=== PATIENT | male | born 1990 | race Caucasian/White ===

== ENCOUNTER 2021-01-16 10:44 | Emergency (ER) | payer BC, SELFPAY ==
--- NOTE | 2021-01-16 10:50 | XR_ITS ---
PROCEDURE INFORMATION: Exam: XR Left Knee Exam date and time: 01/16/2021 10:50 AM Age: 30 years old Clinical indication: Left; Patient HX: [place] a pop in knee yesterday, pain laterally, swelling around knee; Additional info: [place] pop in knee TECHNIQUE: Imaging protocol: XR Left knee. Views: 3 views. COMPARISON: No relevant prior studies available. FINDINGS: Bones/joints: Normal. Soft tissues: Normal. IMPRESSION: No acute findings.
[2021-01-16 11:24] VITALS: BP 116/75; PULSE 84; RESP 19; TEMP 36.8; O2SAT 99; BMI 38.0
--- NOTE | 2021-01-16 11:37 | HMH.EDUTC ---
[facility] [place] Disposition Clinical Impression: Knee sprain Qualifiers: Encounter type: initial encounter Involved ligament of knee: other ligament Laterality: left Qualified Code(s): S83.8X2A - Sprain of other specified parts of left knee, initial encounter Disposition: Home, Self-Care Condition on Discharge: Good Instructions: DI for Knee Sprain, How To Perform RICE (Rest, Ice, Compress, Elevate), How to Use a Knee Immobilizer Additional Instructions: *weight bearing as tolerated *RICE, Rest the extremity, Ice 15-20 minutes 3-4 times daily, Compress- wear the sugar wrap as discussed as much as possible to help reduce swelling and pain, Elevate the extremity when at rest *Knee immobilizer is for support and help control swelling, use it except in the shower. Be sure that is not to tight but not to loose either *Elevate when resting *Ibuprofen every 6-8 hours as needed for pain an inflammation. If need something more can take Tylenol in between doses of Ibuprofen to help Immediately follow up with your family doctor for new or worsening of symptoms, or no noticeable improvement over the next 3-5 days Prescriptions: Ibuprofen [Ibuprofen 600mg Tablet] 600 mg PO Q6HP PRN #20 tab PRN Reason: Moderate Pain Transmission Status: Received by [facility] Referrals: Provider,MD Prince [Primary Care Provider] - Fletcher Talbot MD [Staff Physician] - (Call office for appointment if no improvement) Forms: Work/School Release Time of Disposition: 11:50 Medical Decision Making - Bert Inquiry Pt receiving controlled substance: No Bert was queried for this patient: No Vital Signs: 01/16/21 11:24 01/16/21 12:09 Temperature 98.2 F 98 F Temperature Source Oral Pulse Rate 77 Pulse Rate [Right] 84 Respiratory Rate 19 14 Blood Pressure 120/74 Blood Pressure [Right Arm] 116/75 Blood Pressure Mean [Right Arm] 88 02 Sat by Pulse Oximetry 99 - Radiology Data #1 Image(s): Knee Image Reviewed: Yes I have reviewed radiologist's interpretation Preliminary Findings: Normal/NAD [facility] [place] HPI - General Stated complaint: left knee pop Time Seen by Provider: 01/16/21 11:37 Mode of Arrival: Ambulatory Source of Information: Patient Limitations: No Limitations Description of Symptoms (Recalled from Triage Doc. by RN): pt c/o L knee pain. he states he was coming down from an attic and felt a pop. HEENT Symptoms (Recalled from RN notes): No Resp Symptoms (Recalled from RN notes): No Skin Symptoms (Recalled from RN notes): No MS Symptoms (Recalled from RN notes): Yes (L knee pain) Functional Status (Recalled from RN notes): na - History of Present Illness Provider Complaint: Patient state that he was coming down the ladder from the attic when he felt a tearing pain and heard a pop in his left knee States that ever since he has been having burning like pain and mild swelling in his left knee when he tries to put weight on it State that today it was still hurting so he came in to get it checked - Related Data Home Medications Medication Instructions Recorded Confirmed naproxen sodium 220 mg capsule 220 mg PO BID 02/08/18 Previous Rx's Medication Instructions Recorded Ibuprofen [Ibuprofen 600mg 600 mg PO Q6HP PRN #20 tab 01/16/21 Tablet] Allergies Allergy/AdvReac Type Severity Reaction Status Date / Time alcohol Allergy Verified 02/08/18 15:29 latex Allergy Verified 02/08/18 15:29 - Worker's Comp Is this a Worker's Comp case?: No [facility] History - Hepatitis A Screen Drug use history?: No High risk sexual behaviors?: No History of sexually transmitted infection?: No Currently employed?: No Childcare worker?: No Do you have indoor plumbing?: Yes Do you have electricity?: Yes Attestation statement:: This patient has been screened for Hepatitis A risk factors. I have reviewed the patient's past medical history: Yes Medical History: Reports:: Hyperlipidemia Denies:: Kristine
[2021-01-16 12:09] VITALS: BP 120/74; PULSE 77; RESP 14; TEMP 36.6
== END 2021-01-16 12:09 | disposition home or self-care (01) ==
PROVIDERS: Emergency Provider Nurse Practitioner
DX: S83.8X2A Sprain of other specified parts of left knee, initial encounter (principal); X50.1XXA Overexertion from prolonged static or awkward postures, initial encounter; Y92.019 Unspecified place in single-family (private) house as the place of occurrence of the external cause; E78.5 Hyperlipidemia, unspecified; Z91.040 Latex allergy status
CPT/HCPCS: 29505; 73562; 99202; G0463

== ENCOUNTER 2022-06-29 10:25 | Emergency (ER) | payer BC, SELFPAY ==
[2022-06-29] VITALS (9 sets, daily range): BP systolic 109–126; BP diastolic 65–88; PULSE 57–78; RESP 17–18; TEMP 36.7–36.8; O2SAT 95–97; BMI 38.7; BMI 38.6
--- NOTE | 2022-06-29 10:31 | EXP.UTC ---
Discharge Plan Disposition Patient Disposition: Still a Patient Chief Complaint: Abdominal Pain Prescriptions Prescriptions: No Action naproxen sodium [Aleve] 220 mg capsule 220 mg PO BID ibuprofen 600 MG tablet 600 mg PO Q6HP PRN (Reason: Moderate Pain) Qty: 20 0RF Referrals Follow up/Referrals: Provider,Referral, MD [Primary Care Provider] - See instructions Discharge ED Provider: Jennifer Toledo [facility] [place] HPI General Stated complaint: Lump RT side, pain w/ diahrrea Time Seen by Provider: 06/29/22 10:31 History of Present Illness Provider Complaint: He states that he has had abdominal pain, chills, and low grade fever for the past 2 days. He has had nausea and diarrhea, but no vomiting. He still has his appendix. He does not have his gall bladdeer. Related Data Home Medications Medication Instructions Recorded Confirmed naproxen sodium 220 mg capsule 220 mg PO BID 02/08/18 (Aleve) Previous Rx's Medication Instructions Recorded ibuprofen 600 mg tablet 600 mg PO Q6HP PRN Moderate Pain 01/16/21 #20 tabs Allergies Allergy/AdvReac Type Severity Reaction Status Date / Time alcohol Allergy Verified 02/08/18 15:29 latex Allergy Verified 02/08/18 15:29 [facility] Social History Smoking Status: Former smoker alcohol intake: never substance use type: denies use current occupational status: employed Travel in the last 8 weeks: None ROS Obtained: Yes All systems reviewed & no additional complaints except as documented Constitutional Constitutional: Denies chills, Denies fever(s) and Reports poor appetite ENT Ears, Nose, Mouth, and Throat: Denies dizziness and Denies sore throat Cardiovascular Cardiovascular: Denies dyspnea Respiratory Respiratory: Denies chest congestion, Denies cough and Denies dyspnea Gastrointestinal Gastrointestingal: Reports as per HPI Genitourinary Male Genitourinary: Denies hematuria, Denies urinary frequency, Denies urinary hesitancy, Denies urinary incontinence and Denies urinary urgency Musculoskeletal Musculoskeletal: Denies arthralgias Integumentary/Breasts Skin/Breast: Denies rash Neurologic Neurologic: Denies dizziness Physical Exam General General appearance: alert and in no apparent distress Head Head exam: atraumatic and normocephalic Eye Eye exam: Present normal appearance, PERRL and EOMI ENT ENT exam: Present normal exam, normal oropharynx, mucous membranes moist, TM's normal bilaterally and normal external ear exam Neck Neck exam: Present normal inspection, full ROM and trachea midline; Absent tenderness, meningismus or lymphadenopathy Chest Chest inspection: Present normal inspection and symmetric chest wall rise; Absent tenderness, rash or abscess Respiratory Respiratory exam: Present normal lung sounds bilaterally; Absent respiratory distress, wheezes or stridor Cardiovascular Cardiovascular exam: Present regular rate and normal rhythm; Absent irregular rhythm, systolic murmur, diastolic murmur or JVD Abdominal Exam Abdominal exam: Present soft, tenderness, guarding and hypoactive bowel sounds; Absent distention, rebound, rigidity, psoas sign, obturator sign, heel tap sign, Sharpe's sign, Rovsing's sign or tenderness at McBurney's Point Extremities Exam Extremities exam: Present normal inspection and full ROM; Absent tenderness Back Exam Back exam: Present normal inspection and full ROM; Absent tenderness, CVA tenderness (R) or CVA tenderness (L) Neurological Exam Neurological exam: Present alert, oriented X3 and CN II-XII intact Psychiatric Psychiatric exam: Present normal affect and normal mood Skin Skin exam: Present warm, dry, intact and normal color Lymphatic Lymphatic Findings: no adenopathy Medical Decision Making Medical Records Medical records reviewed: No I reviewed the patient's medical records. Bert Inquiry Pt receiving controlled substance: No Medical Decision Narrati
[2022-06-29 10:48] LABS: Apearance,Urine Clear (Clear); Bilirubin,Urine Negative (Negative); Blood, Urine Negative (Negative); Color,Urine Yellow (Yellow); Glucose,Urine (UA) Negative (Negative); Ketones,Urine Negative (Negative); PH,Urine 5.5 (5.0-8.5); Protein,Urine Negative (Negative); UTC Leukocyte Esterase,Urine Negative (Negative); UTC Nitrate,Urine Negative (Negative); Urobilinogen,Urine 0.2 EU/dl (0.2)
--- NOTE | 2022-06-29 11:07 | CT_ITS ---
FINAL REPORT TECHNIQUE: After the administration of intravenous contrast, axial images were obtained through the abdomen and pelvis by computed tomography. The study was performed with techniques to keep radiation dose as low as reasonably achievable, (ALARA). Individual dose reduction techniques using automated exposure control or adjustment of mA and/or kV according to the patient's size were employed. CLINICAL HISTORY: rlq and llq abd pain. n/v/d FINDINGS: Abdomen: There is a 3 mm nodule in the left lung base, most likely benign. There is mild bibasilar atelectasis or scar. There is mild fatty infiltration of the liver. The patient is status post cholecystectomy. The spleen is unremarkable. The adrenals are normal. The pancreas is unremarkable. The kidneys enhance appropriately. The aorta is normal in caliber. There is no free fluid or adenopathy. There is a small umbilical hernia containing fat. Pelvis: The appendix is normal. The urinary bladder is unremarkable. There is no free fluid or adenopathy. IMPRESSION: Mild fatty liver. Reviewed, Interpreted and Dictated by Elmer Doyle III, MD Transcribed by Jazmyne Calhoun Authenticated and . [facility]
--- NOTE | 2022-06-29 11:08 | HMH.EDGENADL ---
Discharge Plan Disposition Patient Disposition: Home, Self-Care Condition: Good Prescriptions Prescriptions: New omeprazole 20 mg capsule,delayed release(DR/EC) 20 mg PO DAILY 28 Days Qty: 28 0RF dicyclomine 10 mg capsule 10 mg PO TID PRN (Reason: cramps) Qty: 20 0RF No Action naproxen sodium [Aleve] 220 mg capsule 220 mg PO BID ibuprofen 600 MG tablet 600 mg PO Q6HP PRN (Reason: Moderate Pain) Qty: 20 0RF Referrals Follow up/Referrals: Provider,Referral, MD [Primary Care Provider] - See instructions Activity Restrictions/Add. Instructions Additional Instructions/Restrictions: You have been evaluated for upper abdominal pain, cramping. This is likely due to irritable bowel syndrome, possibly ulcer. Please start taking omeprazole daily. Take Bentyl as needed for cramps. Try a food elimination diet. For 2 weeks, no gluten. For the next 2 weeks, no lactose. Follow-up with your primary care doctor as well as your [employer] rep. Return to the emergency department at once for any new or worsening symptoms, pain, vomiting, diarrhea, other concerns Clinical Impressions Clinical Impression: Epigastric abdominal pain, Abdominal pain Stand Alone Forms Stand Alone Forms: Work/School Release Instructions Patient Instructions: DI for Acute Abdominal Pain, DI for Epigastric Pain Discharge ED Provider: Jennifer Toledo Adult HPI General Chief complaint: Abdominal Pain Stated complaint: Lump RT side, pain w/ diahrrea Time Seen by Provider: 06/29/22 10:31 Mode of Arrival: Ambulatory Source of Information: Patient Limitations: No Limitations Description of Symptoms (Recalled from ER Triage Doc. by RN): pt c/o diarrhea x1 week, nausea that started this morning and bilateral UQ abd discomfort off and on x1 week. pt denies urinary symptoms. pt reports having GI issues since his gallbladder was removed 14 years ago. History of Present Illness HPI narrative: 32-year-old male presenting to the emergency department with upper abdominal pain, nausea. Symptoms started 2 to 3 days ago. They are constant. He has pain in his upper abdomen that is described as cramping, sometimes burning. It is located on the right and the left. He has had little appetite. Diarrhea. No fevers, chills, dysuria. History of cholecystectomy when he was 15 years old. Suffers from frequent abdominal pain. Has had upper and lower endoscopy. History of duodenal ulcer, no longer on omeprazole or other medicines for acid reflux. He denies lower abdominal pain, fevers, chills. No other prior abdominal surgeries. Related Data Home Medications Medication Instructions Recorded Confirmed naproxen sodium 220 mg capsule 220 mg PO BID 02/08/18 ([facility]) Previous Rx's Medication Instructions Recorded ibuprofen 600 mg tablet 600 mg PO Q6HP PRN Moderate Pain 01/16/21 #20 tabs dicyclomine 10 mg capsule 10 mg PO TID PRN cramps #20 caps 06/29/22 omeprazole 20 mg capsule,delayed 20 mg PO DAILY 4 weeks #28 caps 06/29/22 release Allergies Allergy/AdvReac Type Severity Reaction Status Date / Time alcohol Allergy Verified 02/08/18 15:29 latex Allergy Verified 02/08/18 15:29 PFSH PFS Social History (Updated 06/29/22 @ 11:14 by Saul Mcgrath APRN) Smoking Status: Former smoker alcohol intake: never substance use type: denies use current occupational status: employed Travel in the last 8 weeks: None ROS Obtained: Yes All systems reviewed & no additional complaints except as documented Constitutional Constitutional: Reports body ache, Denies chills, Denies fever(s) and Denies headache(s) Eyes Eyes: Denies blurry vision ENT Ears, Nose, Mouth, and Throat: Denies dizziness, Denies headache(s) and Denies sore throat Cardiovascular Cardiovascular: Denies chest pain, Denies dyspnea and Denies palpitations Respiratory Respiratory: Denies cough and Denies dyspnea Gastrointestinal Gastrointestingal
--- NOTE | 2022-06-29 11:16 | PC.NURSE ---
IV established and blood sent to the lab. report called to luke quick in the ed. pt walked to room 9 in the ed.
--- NOTE | 2022-06-29 11:20 | PC.NURSE ---
pt medicated per NOV, call light within reach. Notified pt of CT scan ordered per ER
[2022-06-29 11:22] LABS: Basophils # 0.1 K/mm3 (0-0.2); Basophils % 0.9 % (0.1-2.0); Eosinophils # 0.1 K/mm3 (0.0-0.4); Eosinophils % 1.6 % (0.1-12.0); Hemoglobin 15.5 g/dL (14.1-18.0); Lymphocytes # 2.6 K/mm3 (0.7-4.5); Lymphocytes % 30.7 % (10-50); Mean Corpuscular HGB Conc 33.7 g/dL (31.8-35.4); Mean Corpuscular Hemoglobin 28.7 pg (27.0-31.2); Mean Corpuscular Volume 85.2 fl (80-94); Mean Platelet Volume 7.7 fl (7.4-10.4); Monocytes # 0.5 K/mm3 (0.1-1.0); Monocytes % 5.5 % (1.7-9.3); Neutrophils # 5.2 K/mm3 (1.8-7.8); Neutrophils % 61.3 % (37.0-80.0); Platelet Count 392 K/mm3 (142-424); White Blood Count 8.5 K/mm3 (4.8-10.8)
[2022-06-29 11:27] LABS: Alanine Aminotransferase 46 U/L (12-78); Albumin Level 4.4 g/dl (3.5-5.0); Albumin/Globulin Ratio 1.4 (1.1-1.8); Alkaline Phosphatase 86 U/L (38-126); Anion Gap 16.3 mEq/L (5-15); Aspartate Amino Transferase 40 U/L (17-59); Bilirubin,Total 1.5 mg/dl (0.2-1.3); Blood Urea Nitrogen 19 mg/dl (9-20); Carbon Dioxide 28 mmol/L (22.0-30.0); Chloride 100 mmol/L (98-107); Creatinine Clearance Estimated 217 mL/min (50-200); Estimated Glomerular Filt Rate 98 ml/min (>60); GFR (African American) 119 ML/MIN (>60); Globulin 3.1 g/dL (1.3-3.2); Glucose 94 mg/dl (74-100); Lipase 103 U/L (23-300); Potassium 4.3 mmoL/L (3.5-5.1); Sodium 140 mmol/L (136-145); Total Protein,Serum 7.5 g/dl (6.3-8.2)
[2022-06-29 12:21] LABS: Appearance,Urine CLEAR (Clear); Bilirubin,Urine Negative (Negative); Blood, Urine Negative (Negative); Color,Urine YELLOW (Yellow); Glucose,Urine (UA) Negative (Negative); Ketones,Urine Negative (Negative); Leukocyte Esterase,Urine Negative (Negative); Microscopic, Urine URINE MICROSCOPIC (MICROSCOPIC); Nitrate,Urine Negative (Negative); Protein,Urine Negative (Negative); Specific Gravity, Urine 1.025 (1.005-1.030); Urobilinogen,Urine 0.2 EU/dl (0.2)
[2022-06-29 12:32] LABS: C-Reactive Protein 5.5 mg/L (0-4)
--- NOTE | 2022-06-29 14:00 | PC.NURSE ---
pt eating crackers and drinking pop per ER MD request to PO challenge pt, pt tolerating well.
== END 2022-06-29 14:39 | disposition home or self-care (01) ==
LOC: UTC 10:29 → ER 11:02
PROVIDERS: Nurse Practitioner Family; Emergency Provider Emergency Medicine
DX: R10.9 Unspecified abdominal pain (principal); R10.13 Epigastric pain
CPT/HCPCS: 74177; 80053; 81001; 81003; 83690; 85025; 86140; 96365; 96375; 99284; J2405; Q9967

== ENCOUNTER 2022-08-05 15:21 | Emergency (ER) | payer BC, SELFPAY ==
--- NOTE | 2022-08-05 16:54 | EXP.UTC ---
Discharge Plan Disposition Patient Disposition: Home, Self-Care Condition: Good Prescriptions Prescriptions: New cyclobenzaprine 10 mg Tablet 10 mg PO BID PRN (Reason: Muscle Spasm) Qty: 20 0RF No Action naproxen sodium [Aleve] 220 mg capsule 220 mg PO BID omeprazole 20 mg capsule,delayed release(DR/EC) 20 mg PO DAILY 28 Days Qty: 28 0RF dicyclomine 10 mg capsule 10 mg PO TID PRN (Reason: cramps) Qty: 20 0RF ibuprofen 600 MG tablet 600 mg PO Q6HP PRN (Reason: Moderate Pain) Qty: 20 0RF Referrals Follow up/Referrals: Elmer Figueredo MD [Staff Physician] - See instructions Provider,MD Prince [Primary Care Provider] - See instructions Activity Restrictions/Add. Instructions Additional Instructions/Restrictions: Drink plenty of fluids. Take tylenol or ibuprofen for pain or fever. Take the medications as directed. Follow up with your regular doctor. GO TO THE ER FOR ANY WORSENING SYMPTOMS The muscle relaxer (cyclobenzaprine--Flexeril) will make you drowsy, so don't drive or operate heavy machinery after taking it. It may help your symptoms if this is a pulled muscle. It will make you drowsy though. So take it when you can rest at home for the next couple of days. Follow up with a surgeon if you continue to have these symptoms. I put in referral to Dr. Figueredo, but you should see the surgeon that did your gallbladder surgery if possible. Clinical Impressions Clinical Impression: Strain of abdominal muscle Stand Alone Forms Stand Alone Forms: Work/School Release Discharge ED Provider: Saul Mcgrath [facility] General Stated complaint: mid lower abdomin left side Time Seen by Provider: 08/05/22 16:54 History of Present Illness Provider Complaint: He was working with sheet metal 2 days ago when he felt something pull in his left side. Since then he has had a very tender area of his abdominal muscles of his left upper abdominal quadrant. He came in to see if he may have a hernia. He denies any fever, chills, constipation, or other symptoms. Related Data Home Medications Medication Instructions Recorded Confirmed naproxen sodium 220 mg capsule 220 mg PO BID 02/08/18 (Aleve) Previous Rx's Medication Instructions Recorded ibuprofen 600 mg tablet 600 mg PO Q6HP PRN Moderate Pain 05/15/21 #20 tabs dicyclomine 10 mg capsule 10 mg PO TID PRN cramps #20 caps 06/29/22 omeprazole 20 mg capsule,delayed 20 mg PO DAILY 4 weeks #28 caps 06/29/22 release cyclobenzaprine 10 mg tablet 10 mg PO BID PRN Muscle Spasm #20 08/05/22 tabs Allergies Allergy/AdvReac Type Severity Reaction Status Date / Time alcohol Allergy Verified 08/05/22 16:58 chloropyramine Allergy Verified 08/05/22 16:59 latex Allergy Verified 08/05/22 16:58 [facility] Disclaimer: The information contained in this section may have been updated after the patient was seen, as this information can be updated by other users. Social History Smoking Status: Former smoker alcohol intake: never substance use type: denies use current occupational status: employed Travel in the last 8 weeks: None ROS Obtained: Yes All systems reviewed & no additional complaints except as documented Constitutional Constitutional: Denies chills, Denies fever(s) and Reports poor appetite ENT Ears, Nose, Mouth, and Throat: Denies dizziness and Denies sore throat Cardiovascular Cardiovascular: Denies dyspnea Respiratory Respiratory: Denies chest congestion, Denies cough and Denies dyspnea Genitourinary Male Genitourinary: Denies hematuria, Denies urinary frequency, Denies urinary hesitancy, Denies urinary incontinence and Denies urinary urgency Musculoskeletal Musculoskeletal: Denies arthralgias Integumentary/Breasts Skin/Breast: Denies rash Neurologic Neurologic: Denies dizziness Physical Exam General General appearance: alert and in no a
[2022-08-05 16:55] VITALS: BP 127/79; PULSE 86; RESP 16; TEMP 36.7; O2SAT 99; BMI 39.3
[2022-08-05 17:39] VITALS: BP 127/79; PULSE 86; RESP 16; TEMP 36.7
== END 2022-08-05 17:45 | disposition home or self-care (01) ==
PROVIDERS: Emergency Provider Nurse Practitioner Family
DX: S39.011A Strain of muscle, fascia and tendon of abdomen, initial encounter (principal)
CPT/HCPCS: 99212; G0463

== ENCOUNTER 2023-03-06 11:27 | Emergency (ER) | payer BC, SELFPAY ==
[2023-03-06 11:35] VITALS: BP 130/87; PULSE 93; RESP 18; TEMP 36.8; O2SAT 98; BMI 40.6
--- NOTE | 2023-03-06 11:49 | EXP.UTC ---
Discharge Plan Disposition Patient Disposition: Home, Self-Care Condition: Good Prescriptions Prescriptions: New clindamycin HCl 300 mg capsule 300 mg PO Q8H 7 Days Qty: 21 0RF mupirocin 2 % ointment 1 applic topical TID Qty: 22 0RF Rx Instructions: apply open area on abdomen No Action naproxen sodium [Aleve] 220 mg capsule 220 mg PO BID omeprazole 20 mg capsule,delayed release(DR/EC) 20 mg PO DAILY 28 Days Qty: 28 0RF dicyclomine 10 mg capsule 10 mg PO TID PRN (Reason: cramps) Qty: 20 0RF cyclobenzaprine 10 mg Tablet 10 mg PO BID PRN (Reason: Muscle Spasm) Qty: 20 0RF ibuprofen 600 MG tablet 600 mg PO Q6HP PRN (Reason: Moderate Pain) Qty: 20 0RF Referrals Follow up/Referrals: Provider,Referral, MD [Primary Care Provider] - See instructions Activity Restrictions/Add. Instructions Additional Instructions/Restrictions: *Start antibiotic(s) immediately and be sure to take as ordered for the FULL length of time although you may be feeling better or start to see improvement in the next 24-48 hours *Monitor closely. Outlined redness so that you can monitor easier. Follow up immediately for new or worsening symptoms including but not limited to redness, swelling, streaking from site fever or chills. *Warm compress 15 minutes 3-4 times day *Never squeeze or pop these on your own. Seek immediate medical attention next time this occurs *Monitor Temp. Tylenol every 4 hours as needed and ibuprofen every 6 hours as needed (as long as your primary care doctor has told you that it is ok to take both. For fever, aches, pain. ER if no less that 101 despite Tylenol and ibuprofen ?Follow up with your family doctor/primary care physician in the next 48-72 hours if no improvement Apply topical medication directly to the scabbed area on your Abdomen Clinical Impressions Clinical Impression: Cellulitis Qualifiers: Site of cellulitis: unspecified site Qualified Code(s): L03.90 - Cellulitis, unspecified Instructions Patient Instructions: Cellulitis, Clindamycin, Mupirocin Discharge ED Provider: Millie Sepulveda [facility] [place] HPI General Stated complaint: Possible insect bite RT lower abd Time Seen by Provider: 03/06/23 11:49 History of Present Illness Provider Complaint: Patient states that he has a red area on his right lower abdomen States that he is not sure if something may have bitten him or not States that he was like a blister area an then it popped and then got red and warm around it Related Data Home Medications Medication Instructions Recorded Confirmed naproxen sodium 220 mg capsule 220 mg PO BID 02/08/18 (Aleve) Previous Rx's Medication Instructions Recorded ibuprofen 600 mg tablet 600 mg PO Q6HP PRN Moderate Pain 01/16/21 #20 tabs dicyclomine 10 mg capsule 10 mg PO TID PRN cramps #20 caps 06/29/22 omeprazole 20 mg capsule,delayed 20 mg PO DAILY 4 weeks #28 caps 06/29/22 release cyclobenzaprine 10 mg tablet 10 mg PO BID PRN Muscle Spasm #20 08/05/22 tabs clindamycin HCl 300 mg capsule 300 mg PO Q8H 7 days #21 caps 03/06/23 mupirocin 2 % topical ointment 1 applic topical TID #22 grams 03/06/23 Allergies Allergy/AdvReac Type Severity Reaction Status Date / Time alcohol Allergy Verified 08/05/22 16:58 chloropyramine Allergy Verified 08/05/22 16:59 latex Allergy Verified 08/05/22 16:58 PFS PFS Disclaimer: The information contained in this section may have been updated after the patient was seen, as this information can be updated by other users. Social History Smoking Status: Former smoker alcohol intake: never substance use type: denies use current occupational status: employed Travel in the last 8 weeks: None ROS Obtained: Yes All systems reviewed & no additional complaints except as documented and Yes Systems reviewed as appropriate & no additional complaints except as docum
[2023-03-06 12:07] VITALS: BP 130/87; PULSE 93; RESP 18; TEMP 36.8; O2SAT 98
== END 2023-03-06 12:09 | disposition home or self-care (01) ==
PROVIDERS: Emergency Provider Nurse Practitioner
DX: L03.311 Cellulitis of abdominal wall (principal); Z87.891 Personal history of nicotine dependence
CPT/HCPCS: 99212; 99214; G0463

== ENCOUNTER → 2023-05-31 23:33 | Outpatient (CLI) | payer BC, SELFPAY ==
[2023-05-31 18:25] LABS: Alanine Aminotransferase 48 U/L (12-78); Albumin Level 4.4 g/dl (3.5-5.0); Albumin/Globulin Ratio 1.4 (1.1-1.8); Alkaline Phosphatase 92 U/L (38-126); Amylase 56 U/L (30-110); Anion Gap 18.1 mEq/L (5-15); Aspartate Amino Transferase 39 U/L (17-59); Bilirubin,Total 1.1 mg/dl (0.2-1.3); Blood Urea Nitrogen 13 mg/dl (9-20); Calcium 9.3 mg/dl (8.4-10.2); Carbon Dioxide 24 mmol/L (22.0-30.0); Chloride 101 mmol/L (98-107); Estimated Glomerular Filt Rate 98 ml/min (>60); GFR (African American) 118 ML/MIN (>60); Globulin 3.2 g/dL (1.3-3.2); Glucose 126 mg/dl (74-100); Lipase 134 U/L (23-300); Potassium 4.1 mmoL/L (3.5-5.1); Sodium 139 mmol/L (136-145); Total Protein,Serum 7.6 g/dl (6.3-8.2)
[2023-05-31 18:29] LABS: Basophils # 0.1 K/mm3 (0-0.2); Basophils % 0.7 % (0.1-2.0); Eosinophils # 0.1 K/mm3 (0.0-0.4); Eosinophils % 1.7 % (0.1-12.0); Hematocrit 47.4 % (42.0-52.0); Hemoglobin 15.9 g/dL (14.1-18.0); Lymphocytes % 26.8 % (10-50); Mean Corpuscular HGB Conc 33.4 g/dL (31.8-35.4); Mean Corpuscular Hemoglobin 28.3 pg (27.0-31.2); Mean Corpuscular Volume 84.6 fl (80-94); Mean Platelet Volume 9.1 fl (7.4-10.4); Monocytes # 0.3 K/mm3 (0.1-1.0); Monocytes % 4.1 % (1.7-9.3); Neutrophils % 66.7 % (37.0-80.0); Platelet Count 401 K/mm3 (142-424); Red Cell Distribution Width 12.9 % (11.5-17.5); White Blood Count 7.5 K/mm3 (4.8-10.8)
[2023-05-31 18:47] LABS: Erythrocyte Sedimentation Rate 3 mm/hr (0-15)
[2023-06-02 13:07] LABS: C-Reactive Protein 5.3 mg/L (0-4)
== END ==
PROVIDERS: PCP Nurse Practitioner Family; Visit Provider Nurse Practitioner Family
DX: R10.13 Epigastric pain (principal); R10.9 Unspecified abdominal pain; R19.7 Diarrhea, unspecified
CPT/HCPCS: 80053; 82150; 83690; 85025; 85651; 86140

== ENCOUNTER → 2023-07-13 23:14 | Outpatient (CLI) | payer BC, SELFPAY | PROVIDERS: PCP Nurse Practitioner Family; Visit Provider Student in an Organized Health Care Education/Training Program | DX: J02.9 Acute pharyngitis, unspecified (principal) | CPT/HCPCS: 87070 ==

== ENCOUNTER 2023-12-14 16:05 | Emergency (ER) | payer BC, SELFPAY ==
--- NOTE | 2023-12-14 16:13 | EXP.UTC ---
Discharge Plan Disposition Patient Disposition: Home, Self-Care Condition: Good Prescriptions Prescriptions: New methylprednisolone 4 mg Tablets,Dose Pack 4 mg PO DIRECTED 6 Days Qty: 21 0RF Rx Instructions: Take 1 pack as directed for 6 days guaifenesin [Mucinex] 600 mg tablet extended release 12hr 600 - 1,200 mg PO BIDP PRN (Reason: Congestion) Qty: 30 0RF benzonatate 100 mg capsule 100 mg PO TIDP PRN (Reason: Cough) Qty: 30 0RF amoxicillin-pot clavulanate 875-125 mg Tablet 1 tab PO Q12H Qty: 20 0RF Referrals Follow up/Referrals: Sabi Samuels APRN [Primary Care Provider] - See instructions Activity Restrictions/Add. Instructions Additional Instructions/Restrictions: Drink plenty of fluids. Take tylenol or ibuprofen for pain or fever. Take the medications as directed. Follow up with your regular doctor. GO TO THE ER FOR ANY WORSENING SYMPTOMS Clinical Impressions Clinical Impression: Acute bronchitis, Pleurisy Stand Alone Forms Stand Alone Forms: Work/School Release Instructions Patient Instructions: DI for Acute Bronchitis Discharge ED Provider: Saul Mcgrath [facility] General Stated complaint: cough, fever Time Seen by Provider: 12/14/23 16:13 History of Present Illness Provider Complaint: He states that for the past 3 weeks he has had a cough and chest congestion. He denies fever. He states that he does have a history of getting pneumonia several times in the past. Related Data Previous Rx's Medication Instructions Recorded amoxicillin 875 mg-potassium 1 tab PO Q12H #20 tabs 12/14/23 clavulanate 125 mg tablet benzonatate 100 mg capsule 100 mg PO TIDP PRN Cough #30 caps 12/14/23 guaifenesin 600 mg tablet, 600 - 1,200 mg (1 - 2 x 600 mg) PO 12/14/23 extended release 12 hr (Mucinex) BIDP PRN Congestion #30 tabs methylprednisolone 4 mg tablets in 4 mg PO DIRECTED 6 days #21 tabs 12/14/23 a dose pack Allergies Allergy/AdvReac Type Severity Reaction Status Date / Time alcohol Allergy Verified 07/20/23 14:35 chloropyramine Allergy Verified 07/20/23 14:35 latex Allergy Verified 07/20/23 14:35 [facility] Disclaimer: The information contained in this section may have been updated after the patient was seen, as this information can be updated by other users. Medical History (Updated 12/14/23 @ 16:57 by Saul Mcgrath APRN) GERD (gastroesophageal reflux disease) Cellulitis Strain of abdominal muscle Knee sprain Leg pain Surgical History (Updated 07/20/23 @ 15:14 by Rachel Mckenna APRN) Hx of cholecystectomy Family History Other No significant family history Social History Smoking Status: Former smoker tobacco type: smokeless tobacco alcohol intake: never substance use type: denies use current occupational status: employed Travel in the last 8 weeks: None ROS Obtained: Yes All systems reviewed & no additional complaints except as documented Constitutional Constitutional: Reports poor appetite Eyes Eyes: Reports system reviewed and no additional complaints, except as documented ENT Ears, Nose, Mouth, and Throat: Reports as per HPI Cardiovascular Cardiovascular: Reports system reviewed and no additional complaints, except as documented and Denies chest pain Respiratory Respiratory: Denies shortness of breath, Reports chest congestion, Reports cough, Denies stridor and Denies wheezing Gastrointestinal Gastrointestingal: Reports system reviewed and no additional complaints, except as documented; Denies abdominal pain, diarrhea or vomiting Musculoskeletal Musculoskeletal: Reports system reviewed and no additional complaints, except as documented and Denies arthralgias Integumentary/Breasts Skin/Breast: Reports system reviewed and no additional complaints, except as documented and Denies rash Neurologic Neurologic: Denies paresthesias Allergic/Immunologic Allergic/Immunologic: Denies wheezing Physical Exam General General appearance: alert and in no apparent distress Eye Eye exam: Present normal appearance, PERRL and EOMI ENT ENT exam: Present mucous membranes moist and normal external ear exam Expanded ENT Exam External ear exam: Present normal external inspection TM/Canal exam: Bilateral TM: erythema and bulging Nose exam: Absent sinus tenderness Nasal speculum exam: Bilateral: normal Mouth exam: Present normal external inspection; Absent drooling Teeth exam: Present normal inspection Throat exam: Present tonsillar erythema and tonsillomegaly Neck Neck exam: Present normal inspection, full ROM and trachea midline; Absent tenderness, lymphadenopathy or thyromegaly Chest Chest inspection: Present normal inspection and symmetric chest wall rise; Absent tenderness or rash Respiratory Respiratory exam: Present normal lung sounds bilaterally; Absent respiratory distress, wheezes, stridor or accessory muscle use Cardiovascular Cardiovascular exam: Present regular rate, normal rhythm and normal heart sounds Abdominal Exam Abdominal exam: Present soft; Absent distention, tenderness, guarding, rebound or rigidity Extremities Exam Extremities exam: Present normal inspection, full ROM and normal capillary refill; Absent tenderness or calf tenderness Back Exam Back exam: Present normal inspection and full ROM; Absent tenderness Neurological Exam Neurological exam: Present alert and oriented X3 Psychiatric Psychiatric exam: Present normal affect and normal mood Skin Skin exam: Present warm, dry, intact and normal color Lymphatic Lymphatic Findings: no adenopathy Medical Decision Making Medical Records Medical records reviewed: No I reviewed the patient's medical records. Bert Inquiry Pt receiving controlled substance: No Lab Data Lab results reviewed: Yes I reviewed the patient's lab results. Radiology Data #1: Image(s): Chest Image Reviewed: Yes I reviewed the patient's radiology image and Yes I have reviewed radiologist's interpretation Preliminary Findings: No Infiltrates Seen Accession No. : [id number] Patient Name / ID : Saqib Salas Shankar / [id number] Exam Date : 12/14/2023 16:25:00 ( Final ) Study Comment : Sex / Age : M / 33Y Creator : DIANDRA HERNANDEZ Dictator : Recreation Therapist : Tying Machine Operator Lumber : DIANDRA HERNANDEZ Approver2 : Report Date : 12/14/2023 17:11:12 My Comment : PROCEDURE INFORMATION: Exam: XR Chest Exam date and time: 12/14/2023 4:25 PM Age: 33 years old Clinical indication: Cough; Additional info: Cough x 4 weeks, congestion. Former smoker for 2 yrs TECHNIQUE: Imaging protocol: Radiologic exam of the chest. Views: 2 views. COMPARISON: CT ABDOMEN PELVIS W CON 06/29/2022 12:09 PM FINDINGS: Lungs: Unremarkable. No consolidation. Pleural spaces: Unremarkable. No pleural effusion. No pneumothorax. Heart/Mediastinum: Unremarkable. No cardiomegaly. Bones/joints: Unremarkable. IMPRESSION: No acute findings.
[2023-12-14 16:15] VITALS: BP 132/85; PULSE 86; RESP 20; TEMP 36.9; O2SAT 97; BMI 38.5
--- NOTE | 2023-12-14 16:25 | XR_ITS ---
PROCEDURE INFORMATION: Exam: XR Chest Exam date and time: 12/14/2023 4:25 PM Age: 33 years old Clinical indication: Cough; Additional info: Cough x 4 weeks, congestion. Former smoker for 2 yrs TECHNIQUE: Imaging protocol: Radiologic exam of the chest. Views: 2 views. COMPARISON: CT ABDOMEN PELVIS W CON 06/29/2022 12:09 PM FINDINGS: Lungs: Unremarkable. No consolidation. Pleural spaces: Unremarkable. No pleural effusion. No pneumothorax. Heart/Mediastinum: Unremarkable. No cardiomegaly. Bones/joints: Unremarkable. IMPRESSION: No acute findings.
[2023-12-14 16:50] VITALS: BP 132/85; PULSE 86; RESP 20; TEMP 36.9; O2SAT 97
== END 2023-12-14 17:00 | disposition home or self-care (01) ==
PROVIDERS: Emergency Provider Nurse Practitioner Family; PCP Nurse Practitioner Family
DX: J20.9 Acute bronchitis, unspecified (principal); R09.1 Pleurisy; R05.9 Cough, unspecified; K21.9 Gastro-esophageal reflux disease without esophagitis; Z87.891 Personal history of nicotine dependence
CPT/HCPCS: 71046; 99212; 99214; G0463

== ENCOUNTER 2024-01-01 16:27 | Emergency (ER) | payer BC, SELFPAY ==
--- NOTE | 2024-01-01 16:54 | XR_ITS ---
PROCEDURE INFORMATION: Exam: XR Right Foot Exam date and time: 01/01/2024 4:57 PM Age: 33 years old Clinical indication: Injury or trauma; Other: Rolled ankle TECHNIQUE: Imaging protocol: Radiologic exam of the right foot. Views: 3 or more views. COMPARISON: CR XR ANKLE RT MIN 3V 01/01/2024 4:56 PM FINDINGS: Bones/joints: There is no evidence of acute fracture or dislocation. Joint spaces appear preserved. Calcaneal spurs are demonstrated at the origin of the plantar fascia and the insertion of the Achilles tendon. Soft tissues: No significant soft tissue edema. No subcutaneous emphysema or radiopaque foreign bodies. IMPRESSION: No acute posttraumatic osseous injury.
--- NOTE | 2024-01-01 16:54 | XR_ITS ---
PROCEDURE INFORMATION: Exam: XR Right Ankle Exam date and time: 01/01/2024 4:56 PM Age: 33 years old Clinical indication: Injury or trauma; Other: Rolled ankle TECHNIQUE: Imaging protocol: Radiologic exam of the right ankle. Views: 3 or more views. COMPARISON: No relevant prior studies available. FINDINGS: Bones/joints: There is no evidence of acute fracture or dislocation. Joint spaces appear preserved. Calcaneal spurs are demonstrated at the origin of the plantar fascia and the insertion of the Achilles tendon. A subtle geographic tubular lucency in the distal tibia suggests sequela of prior orthopedic hardware. Soft tissues: No significant soft tissue edema. No subcutaneous emphysema or radiopaque foreign bodies. IMPRESSION: No acute posttraumatic osseous injury.
[2024-01-01 17:10] VITALS: BP 128/83; PULSE 108; RESP 18; TEMP 36.6; O2SAT 99; BMI 38.7
--- NOTE | 2024-01-01 17:19 | ED_ITS ---
Discharge Plan Disposition Patient Disposition: Home, Self-Care Condition: Good Prescriptions Prescriptions: New ibuprofen [IBU] 800 mg tablet 800 mg PO Q8HP PRN (Reason: Moderate Pain) Qty: 30 0RF Referrals Follow up/Referrals: Sugey Sterling DPM [Staff Physician] - See instructions Sabi Samuels APRN [Primary Care Provider] - See instructions Activity Restrictions/Add. Instructions Additional Instructions/Restrictions: Rest the extremity, apply ice for 15 minutes as tolerated three or four times per day, Wear the phil wrap for compression, Elevate the extremity as tolerated while you are resting. Take ibuprofen for pain. I sent in a prescription to your pharmacy. Follow up with Dr. Sterling (podiatry) if you continue to have symptoms. I put in a referral but you need to call her office and schedule an appointment. Follow up with your regular doctor. GO TO THE ER FOR ANY WORSENING SYMPTOMS Clinical Impressions Clinical Impression: Sprain of right foot, Right ankle sprain Stand Alone Forms Stand Alone Forms: Work/School Release Instructions Patient Instructions: DI for Ankle Sprain, DI for Foot Sprain Discharge ED Provider: Saul Mcgrath [facility] General Stated complaint: AO 01/01/24 1100 Injury right foot Time Seen by Provider: 01/01/24 17:19 History of Present Illness Provider Complaint: He states that 1 day ago he stepped on an uneven area of pavement and it caused him to twist his right foot and ankle. He has had right foot and ankle pain and swelling since then. His pain is worse when he walks on the foot. He denies any other injury or complaints. Related Data Previous Rx's Medication Instructions Recorded ibuprofen 800 mg tablet (IBU) 800 mg PO Q8HP PRN Moderate Pain 01/01/24 #30 tabs Allergies Allergy/AdvReac Type Severity Reaction Status Date / Time alcohol Allergy Verified 01/01/24 17:23 chloropyramine Allergy Verified 01/01/24 17:23 latex Allergy Verified 01/01/24 17:23 [facility] Disclaimer: The information contained in this section may have been updated after the patient was seen, as this information can be updated by other users. Medical History (Updated 01/01/24 @ 18:20 by Saul Mcgrath APRN) GERD (gastroesophageal reflux disease) Cellulitis Strain of abdominal muscle Knee sprain Leg pain Surgical History Hx of cholecystectomy Family History Other No significant family history Social History Smoking Status: Former smoker tobacco type: smokeless tobacco alcohol intake: never substance use type: denies use current occupational status: employed Travel in the last 8 weeks: None ROS Obtained: Yes All systems reviewed & no additional complaints except as documented Constitutional Constitutional: Denies chills and Denies fever(s) Eyes Eyes: Denies eye discharge ENT Ears, Nose, Mouth, and Throat: Denies dizziness, Denies otalgia and Denies sore throat Cardiovascular Cardiovascular: Denies chest pain Respiratory Respiratory: Denies shortness of breath, Denies chest congestion, Denies cough, Denies stridor and Denies wheezing Gastrointestinal Gastrointestingal: Denies nausea or vomiting Musculoskeletal Musculoskeletal: Reports as per HPI Integumentary/Breasts Skin/Breast: Denies redness, Denies rash and Denies wounds Neurologic Neurologic: Denies dizziness, Denies paresthesias and Denies radicular pain Allergic/Immunologic Allergic/Immunologic: Denies wheezing Physical Exam General General appearance: alert and in no apparent distress Head Head exam: atraumatic, normocephalic and normal inspection Eye Eye exam: Present normal appearance, PERRL and EOMI ENT ENT exam: Present normal exam, normal oropharynx, mucous membranes moist, TM's normal bilaterally and normal external ear exam Neck Neck exam: Present normal inspection, full ROM and trachea midline; Absent meningismus or lymphadenopathy Chest Chest inspection: Present normal inspection and symmetric chest wall rise; Absent tenderness Respiratory Respiratory exam: Present normal lung sounds bilaterally; Absent respiratory distress Cardiovascular Cardiovascular exam: Present regular rate and normal rhythm; Absent JVD Abdominal Exam Abdominal exam: Present soft and normal bowel sounds; Absent distention, tenderness or guarding Extremities Exam Extremities exam: Present normal capillary refill; Absent calf tenderness Expanded Lower Extremity Exam Right: Knee exam: Present normal inspection, full ROM and knee extension intact; Absent tenderness Lower leg exam: Present normal inspection, full ROM and Achilles tendon intact; Absent tenderness or Homans' sign Ankle exam: Present full ROM, tenderness and swelling; Absent abrasion, laceration, ecchymosis, deformity, crepitus, dislocation, erythema, tenderness over talofibular lig or anterior draw sign Foot/toe exam: Present full ROM, tenderness and swelling; Absent abrasion, laceration, ecchymosis, deformity, crepitus, dislocation, erythema, amputation, puncture wound, foreign body, calcaneal tenderness, tenderness at base of 5th metatarsal, nail avulsion or subungual hematoma Neurovascular/Tendon exam: Present normal capillary refill and normal 2- point discrimination; Absent pulse deficit, motor deficit, sensory deficit, tendon deficit, extremity cold to touch or pallor Gait: observed and limited by pain Back Exam Back exam: Present normal inspection; Absent tenderness Neurological Exam Neurological exam: Present alert and oriented X3 Psychiatric Psychiatric exam: Present normal affect and normal mood Skin Skin exam: Present warm, dry, intact and normal color Lymphatic Lymphatic Findings: no adenopathy Medical Decision Making Medical Records Medical records reviewed: No I reviewed the patient's medical records. Bert Inquiry Pt receiving controlled substance: No Orders (Tests/Meds): ORDERS Category Date Time Status Ankle XR -Right minimum 3 Views [XR ankle RT min 3V] Exams 01/01/24 16:54 Taken Stat XR foot RT min 3V Stat Exams 01/01/24 16:54 Taken Radiology Data #1: Image(s): Ankle Image Reviewed: Yes I reviewed the patient's radiology image and Yes I have reviewed radiologist's interpretation Preliminary Findings: No Fracture Seen Accession No. : [id number] Patient Name / ID : KARINA LOOMIS / [id number] Exam Date : 01/01/2024 16:56:37 ( Final ) Study Comment : Sex / Age : M / 33Y Creator : EBONY SWARTZ MD Dictator : Public Relations Supervisor : Crm Coordinator : EBONY SWARTZ MD Approver2 : Report Date : 01/01/2024 17:26:11 My Comment : PROCEDURE INFORMATION: Exam: XR Right Ankle Exam date and time: 01/01/2024 4:56 PM Age: 33 years old Clinical indication: Injury or trauma; Other: Rolled ankle TECHNIQUE: Imaging protocol: Radiologic exam of the right ankle. Views: 3 or more views. COMPARISON: No relevant prior studies available. FINDINGS: Bones/joints: There is no evidence of acute fracture or dislocation. Joint spaces appear preserved. Calcaneal spurs are demonstrated at the origin of the plantar fascia and the insertion of the Achilles tendon. A subtle geographic tubular lucency in the distal tibia suggests sequela of prior orthopedic hardware. Soft tissues: No significant soft tissue edema. No subcutaneous emphysema or radiopaque foreign bodies. IMPRESSION: No acute posttraumatic osseous injury. #2: Image(s): Foot/Toes Image Reviewed: Yes I reviewed the patient's radiology image and Yes I have reviewed radiologist's interpretation Preliminary Findings: No Fracture Seen Accession No. : [id number] Patient Name / ID : KARINA LOOMIS / [id number] Exam Date : 01/01/2024 16:57:51 ( Final ) Study Comment : Sex / Age : M / 33Y Creator : EBONY SWARTZ MD Dictator : Public Relations Supervisor : Crm Coordinator : EBONY SWARTZ MD Approver2 : Report Date : 01/01/2024 17:35:50 My Comment : PROCEDURE INFORMATION: Exam: XR Right Foot Exam date and time: 01/01/2024 4:57 PM Age: 33 years old Clinical indication: Injury or trauma; Other: Rolled ankle TECHNIQUE: Imaging protocol: Radiologic exam of the right foot. Views: 3 or more views. COMPARISON: CR XR ANKLE RT MIN 3V 01/01/2024 4:56 PM FINDINGS: Bones/joints: There is no evidence of acute fracture or dislocation. Joint spaces appear preserved. Calcaneal spurs are demonstrated at the origin of the plantar fascia and the insertion of the Achilles tendon. Soft tissues: No significant soft tissue edema. No subcutaneous emphysema or radiopaque foreign bodies. IMPRESSION: No acute posttraumatic osseous injury. Procedures Risk/Benefits of Procedure(s) Were Explained: Yes Orthopedic Splinting/Casting Injury #1: Side: right Lower Extremity Injury Location: ankle and foot Lower Extremity Immobilizer: Phil wrap Post Cast/Splinting Neuro Status: intact and no change Post Cast/Splinting Vasc Status: intact and no change
[2024-01-01 18:31] VITALS: BP 128/83; PULSE 108; RESP 18; TEMP 36.6; O2SAT 99
== END 2024-01-01 18:30 | disposition home or self-care (01) ==
PROVIDERS: Emergency Provider Nurse Practitioner Family; PCP Nurse Practitioner Family
DX: S93.401A Sprain of unspecified ligament of right ankle, initial encounter (principal); S93.601A Unspecified sprain of right foot, initial encounter; X50.1XXA Overexertion from prolonged static or awkward postures, initial encounter
CPT/HCPCS: 73610; 73630; 99212; 99214; G0463

== ENCOUNTER 2024-01-16 14:38 | Outpatient (CLI) | payer BC, SELFPAY ==
--- NOTE | 2024-01-16 14:47 | MR_ITS ---
FINAL REPORT CLINICAL HISTORY: Chronic Ankle Instability rolled ankle lateral and plantar pain FINDINGS: Multiplanar MR imaging of the right ankle was performed without contrast. No fractures identified. There is bone bruising/marrow edema in the distal inferior talus with a small presumed osteochondral lesion in this region. Postoperative changes are seen in the region of the anterior talofibular ligament, lateral malleolus and lateral aspect of the talus. The graft is not well-visualized, and a tear of the graft is not excluded. There is thickening of the calcaneofibular ligament which may represent sequela of prior partial tear. The posterior talofibular ligament is intact. The other ligaments appear intact. Mild posterior tibial and peroneus longus tenosynovitis is noted. There is mild distal Achilles peritendinitis. The other tendons have an unremarkable appearance. The posterior plantar aponeurosis is intact. A small tibiotalar joint effusion is seen. The musculature is intact. There is no evidence of soft tissue mass or cyst. IMPRESSION: Postoperative changes from anterior talofibular ligament repair. The graft is not well-visualized and a tear of the graft is not excluded. Mild posterior tibial and peroneus longus tenosynovitis. Mild bone bruising/marrow edema in the distal inferior talus with a small osteochondral lesion. Authenticated and ERN
== END 2024-01-16 23:59 | disposition home or self-care (01) ==
LOC: RAD 14:40
PROVIDERS: PCP Student in an Organized Health Care Education/Training Program; Visit Provider Podiatrist
DX: M25.571 Pain in right ankle and joints of right foot (principal); M25.371 Other instability, right ankle; S86.311A Strain of muscle(s) and tendon(s) of peroneal muscle group at lower leg level, right leg, initial encounter; S93.491S Sprain of other ligament of right ankle, sequela; S93.601A Unspecified sprain of right foot, initial encounter
CPT/HCPCS: 73721

== ENCOUNTER 2024-06-04 09:43 | Emergency (ER) | payer BC, SELFPAY ==
[2024-06-04 09:45] VITALS: BP 127/76; PULSE 72; RESP 19; TEMP 36.6; O2SAT 97; BMI 36.8
--- NOTE | 2024-06-04 09:51 | XR_ITS ---
FINAL REPORT CLINICAL HISTORY: pain FINDINGS: LUMBAR SPINE Three views demonstrate no acute fracture. The disc spaces are well preserved. There is mild anterior osteophyte formation There is no malalignment. IMPRESSION: No acute process. Reviewed, Interpreted and Dictated by Oren Venegas MD Transcribed by Jazmyne Calhoun Authenticated and [facility]
--- NOTE | 2024-06-04 10:23 | ED_ITS ---
Discharge Plan Disposition Patient Disposition: Home, Self-Care Condition: Good Prescriptions Prescriptions: New cyclobenzaprine 10 mg Tablet 10 mg PO BID PRN (Reason: Muscle Spasm) Qty: 20 0RF methylprednisolone 4 mg Tablets,Dose Pack 4 mg PO DIRECTED 6 Days Qty: 21 0RF Rx Instructions: Take 1 pack as directed for 6 days Referrals Follow up/Referrals: Nallely Gaspar PA [Primary Care Provider] - See instructions Activity Restrictions/Add. Instructions Additional Instructions/Restrictions: Go home and rest. It would be best if you rested tomorrow too. No heavy lifting & No twisting for the next few days. Take the oral medications as directed. The muscle relaxer (cyclobenzaprine--Flexeril) will make you drowsy, so don't drive or operate heavy machinery after taking it. Don't start the oral steroids (medrol dose pack) until tomorrow, since you had the shots in here today. Follow up with your regular doctor. GO TO THE ER FOR ANY WORSENING SYMPTOMS OR CONCERN, ESPECIALLY BOWEL OR BLADDER ISSUES, SADDLE AREA NUMBNESS, FEVER, ETC Clinical Impressions Clinical Impression: Low back pain, Sciatica Stand Alone Forms Stand Alone Forms: Work/School Release Instructions Patient Instructions: DI for Low Back Pain, DI for Sciatica, Methylprednisolone Injection Print Language Print Language: Nepalese Discharge ED Provider: Saul Mcgrath [facility] General Stated complaint: severe lower back pain Mode of Arrival: Ambulatory Source of Information: Patient Limitations: No Limitations Time Seen by Provider: 06/04/24 10:23 Description of Symptoms (Recalled from Triage Doc. by RN): PATIENT C/O LOWER BACK PAIN THAT STARTED THIS MORNING. PATIENT STATES HE WAS HELPING HIS SIT UP THIS MORNING WHEN HE HEARD A POP FOLLOWED BY A SHARP/BURNING PAIN IN HIS LOWER BACK. PATIENT REPORTS A HISTORY OF A BULDGING DISC HEENT Symptoms (Recalled from RN notes): No Resp Symptoms (Recalled from RN notes): No Skin Symptoms (Recalled from RN notes): No MS Symptoms (Recalled from RN notes): Yes Functional Status (Recalled from RN notes): WNL History of Present Illness Provider Complaint: He states that for the past 2 days he has had low back pain that radiates down his left leg. He states that his pain began after he was straining to lift something. He has been taking naproxen at home for this pain with not much relief noted. He denies any bowel or bladder issues. Related Data Previous Rx's ?Medication ?Instructions ?Recorded cyclobenzaprine 10 mg tablet 10 mg PO BID PRN Muscle Spasm #20 06/04/24 tabs methylprednisolone 4 mg tablets in 4 mg PO DIRECTED 6 days #21 tabs 06/04/24 a dose pack Allergies Allergy/AdvReac Type Severity Reaction Status Date / Time alcohol Allergy Verified 01/22/24 14:57 chloropyramine Allergy Verified 01/22/24 14:57 latex Allergy Verified 01/22/24 14:57 Worker's Comp Is this a Worker's Comp case?: No [facility] Disclaimer: The information contained in this section may have been updated after the patient was seen, as this information can be updated by other users. Medical History GERD (gastroesophageal reflux disease) Cellulitis Strain of abdominal muscle Knee sprain Leg pain Surgical History History of ankle surgery Right ankle 2004- bolt placed for stability, 2005- hardware removal, 2018- anchors and mesh placed Hx of cholecystectomy Family History Other No significant family history Social History Smoking Status: Former smoker tobacco type: smokeless tobacco alcohol intake: never substance use type: denies use current occupational status: employed Travel in the last 8 weeks: None ROS Obtained: Yes All systems reviewed & no additional complaints except as documented Constitutional Constitutional: Denies chills, Denies fever(s) and Denies weakness Eyes Eyes: Denies eye discharge ENT Ears, Nose, Mouth, and Throat: Denies dizziness, Denies otalgia and Denies sore throat Cardiovascular Cardiovascular: Denies chest pain Respiratory Respiratory: Denies shortness of breath, Denies chest congestion, Denies cough, Denies stridor and Denies wheezing Gastrointestinal Gastrointestingal: Denies nausea or vomiting Musculoskeletal Musculoskeletal: Reports as per HPI and Reports back pain Integumentary/Breasts Skin/Breast: Denies rash Neurologic Neurologic: Reports as per HPI, Denies dizziness, Denies paresthesias, Reports radicular pain and Denies weakness Allergic/Immunologic Allergic/Immunologic: Denies wheezing Physical Exam General General appearance: alert and in no apparent distress Head Head exam: atraumatic, normocephalic and normal inspection Eye Eye exam: Present normal appearance, PERRL and EOMI ENT ENT exam: Present normal exam, normal oropharynx, mucous membranes moist, TM's normal bilaterally and normal external ear exam Neck Neck exam: Present normal inspection, full ROM and trachea midline; Absent meningismus or lymphadenopathy Chest Chest inspection: Present normal inspection and symmetric chest wall rise; Absent tenderness Respiratory Respiratory exam: Present normal lung sounds bilaterally; Absent respiratory distress Cardiovascular Cardiovascular exam: Present regular rate and normal rhythm; Absent JVD Abdominal Exam Abdominal exam: Present soft and normal bowel sounds; Absent distention, tenderness or guarding Extremities Exam Extremities exam: Present normal inspection, full ROM and normal capillary refill; Absent calf tenderness Back Exam Back exam: Present normal inspection; Absent tenderness Neurological Exam Neurological exam: Present alert, oriented X3, CN II-XII intact, normal gait and reflexes normal; Absent motor sensory deficit Expanded Neurological Exam Speech: Present fluid speech Cranial nerves: Normal: EOM function (II, III, IV, ), facial sensation (V), facial palsy (VII), gag reflex (IX), spinal accessory function (XI) and tongue deviation (XII) Cerebellar function: normal gait Motor strength - LUE: 5/5 Motor strength - RUE: 5/5 Motor strength - LLE: 5/5 Motor strength - RLE: 5/5 Upper motor neuron exam: Normal: gigi neglect, pronator drift, Babinski sign and sensory extinction Sensory exam upper extremity: Normal: light touch and 2 point discrimination Sensory exam lower extremity: Normal: light touch and 2 point discrimination DTR: 2+: biceps (L), biceps (R), patellar (L), patellar (R), Achilles tendon (L) and Achilles tendon (R) Spinal cord function: Absent saddle anesthesia Psychiatric Psychiatric exam: Present normal affect and normal mood Skin Skin exam: Present warm, dry, intact and normal color Lymphatic Lymphatic Findings: no adenopathy Medical Decision Making Medical Records Medical records reviewed: No I reviewed the patient's medical records. Screening: Per USPSTF and CDC recommendations, given the prevalence of disease in our region, it is our hospital?s policy to screen for HIV and viral Hepatitis for all patients aged 18 and over and those with ongoing risk factors. Bert Inquiry Pt receiving controlled substance: No Vital Signs: 06/04/24 09:45 Temperature 97.9 F Temperature Source Oral Pulse Rate [Right Brachial] 72 Respiratory Rate 19 Blood Pressure [Right Arm] 127/76 Blood Pressure Mean [Right Arm] 93 Blood Pressure Source [Right Arm] Automatic Cuff Blood Pressure Position [Right Arm] Sitting 02 Sat by Pulse Oximetry 97 Oxygen Delivery Method Room Air Orders (Tests/Meds): ORDERS Category Date Time Status Lumbar spine XR 2-3 views [XR lumbar spine 2-3V] Stat Exams 06/04/24 09:51 Taken
--- NOTE | 2024-06-04 10:44 | PC.NURSE ---
SPOKE WITH PATI FROM PHARMACY R/T PATIENT'S ALCOHOL ALLERGY AND TORADOL. TORADOL DOES CONTAIN ALCOHOL, DO NOT GIVE
[2024-06-04] MEDS: METHYLPREDNISOLONE SOD SUCC 125MG VIAL 125 MG IM (10:50)
[2024-06-04 11:18] VITALS: BP 127/76; PULSE 72; RESP 19; TEMP 36.6; O2SAT 97
== END 2024-06-04 11:21 | disposition home or self-care (01) ==
PROVIDERS: Emergency Provider Nurse Practitioner Family; PCP Student in an Organized Health Care Education/Training Program
DX: M54.50 Low back pain, unspecified (principal)
CPT/HCPCS: 72100; 96372; 99213; G0381; J2919

== ENCOUNTER 2024-08-05 18:41 | Emergency (ER) | payer BC, SELFPAY ==
[2024-08-05 18:50] VITALS: BP 139/92; PULSE 97; RESP 22; TEMP 37.1; O2SAT 96; BMI 38.6
[2024-08-05 19:10] LABS: UTC Influenza A Antigen Negative (Negative); UTC Influenza B Antigen Negative (Negative); UTC Strep Screen (Rapid) Negative (Negative)
--- NOTE | 2024-08-05 19:14 | ED_ITS ---
Discharge Plan Disposition Patient Disposition: Home, Self-Care Condition: Good Prescriptions Prescriptions: New prednisone 20 mg tablet 20 mg PO BID 5 Days Qty: 10 0RF amoxicillin-pot clavulanate 875-125 mg Tablet 1 tab PO Q12H Qty: 20 0RF guaifenesin [Mucinex] 1,200 mg tablet extended release 12hr 1,200 mg PO Q12H PRN (Reason: congestion) Qty: 20 0RF Referrals Follow up/Referrals: Nallely Gaspar PA [Primary Care Provider] - See instructions Activity Restrictions/Add. Instructions Additional Instructions/Restrictions: * Start antibiotic today. Be sure to complete entire prescription even if feeling better * Monitor temp. Tylenol every 4 hours as needed and / or ibuprofen every 6 hours as needed ( As long as your primary care physician has told you that it ok to take both. For fever/aches/pains ER if no less than 101 despite Tylenol or Motrin * Humidifier/vaporizer or hot steamy shower * Mucinex for your cough Be sure to drink lots of water. *Start steroid today. Helps with inflammation therefore, cough and wheezing. Follow directions on the package. Reviewed side effects. Patient reports taking them before. Follow up IMMEDIATELY for new or worsening of symptoms OR no noticeable improvement over the next 48-72 hours. 911 immediately for any life threatening symptoms such as chest pain or difficulty breathing Clinical Impressions Clinical Impression: Sinusitis, Bronchitis Stand Alone Forms Stand Alone Forms: Work/School Release Instructions Patient Instructions: DI for Sinusitis, Acute Bronchitis Print Language Print Language: Portuguese Discharge ED Provider: Millie Sepulveda [facility] HPI General Stated complaint: sore throat, chills, rené Mode of Arrival: Ambulatory Source of Information: Patient Limitations: No Limitations Time Seen by Provider: 08/05/24 19:14 Description of Symptoms (Recalled from Triage Doc. by RN): PATIENT C/O SORE THROAT, BILATERAL EAR PAIN, INTERMITTEN FEVER, CHEST CONGESTION, SINUS PRESSURE AND HEADACHE X 2 DAYS HEENT Symptoms (Recalled from RN notes): Yes Resp Symptoms (Recalled from RN notes): No Skin Symptoms (Recalled from RN notes): No MS Symptoms (Recalled from RN notes): No Functional Status (Recalled from RN notes): WNL History of Present Illness Provider Complaint: Patient states that he has been having sinus pain and pressure, sore throat, cough, pain and pressure in his ears and feels like it is trying to move into his chest worse over the last couple of days States that his face feels sore around his cheeks from the sinus pressure States today he wasnt feeling any better so he came in to get checked Related Data Previous Rx's ?Medication ?Instructions ?Recorded amoxicillin 875 mg-potassium 1 tab PO Q12H #20 tabs 08/05/24 clavulanate 125 mg tablet guaifenesin 1,200 mg tablet, 1,200 mg PO Q12H PRN congestion 08/05/24 extended release 12 hr (Mucinex) #20 tabs prednisone 20 mg tablet 20 mg PO BID 5 days #10 tabs 08/05/24 Allergies Allergy/AdvReac Type Severity Reaction Status Date / Time alcohol Allergy Verified 06/07/24 08:45 chloropyramine Allergy Verified 06/07/24 08:45 latex Allergy Verified 06/07/24 08:45 Worker's Comp Is this a Worker's Comp case?: No [facility] Disclaimer: The information contained in this section may have been updated after the patient was seen, as this information can be updated by other users. Medical History GERD (gastroesophageal reflux disease) Cellulitis Strain of abdominal muscle Knee sprain Leg pain Surgical History History of ankle surgery Right ankle 2004- bolt placed for stability, 2005- hardware removal, 2018- anchors and mesh placed Hx of cholecystectomy Family History Other No significant family history Social History Smoking Status: Former smoker tobacco type: smokeless tobacco alcohol intake: never substance use type: denies use current occupational status: employed Travel in the last 8 weeks: None ROS Obtained: Yes All systems reviewed & no additional complaints except as documented and Yes Systems reviewed as appropriate & no additional complaints except as documented Constitutional Constitutional: Reports system reviewed and no additional complaints, except as documented, Reports as per HPI, Reports body ache and Reports headache(s) ENT Ears, Nose, Mouth, and Throat: Reports system reviewed and no additional complaints, except as documented, Reports as per HPI, Reports otalgia, Reports headache(s), Reports sinus pain, Reports sinus pressure and Reports sore throat Cardiovascular Cardiovascular: Reports system reviewed and no additional complaints, except as documented and Reports as per HPI Respiratory Respiratory: Reports system reviewed and no additional complaints, except as documented, Reports as per HPI, Denies shortness of breath, Reports chest congestion, Reports cough and Denies wheezing Gastrointestinal Gastrointestingal: Reports system reviewed and no additional complaints, except as documented and as per HPI Neurologic Neurologic: Reports headache(s) Allergic/Immunologic Allergic/Immunologic: Denies wheezing Physical Exam General General appearance: alert and in no apparent distress ENT ENT exam: Present mucous membranes moist Expanded ENT Exam TM/Canal exam: Bilateral TM: erythema and bulging Nose exam: Present sinus tenderness Throat exam: Present tonsillar erythema; Absent tonsillomegaly or tonsillar exudate Respiratory Respiratory exam: Present normal lung sounds bilaterally; Absent respiratory distress or wheezes Cardiovascular Cardiovascular exam: Present regular rate, normal rhythm and normal heart sounds Abdominal Exam Abdominal exam: Present soft, distention and normal bowel sounds Neurological Exam Neurological exam: Present alert, oriented X3 and normal gait Medical Decision Making Medical Records Screening: Per USPSTF and CDC recommendations, given the prevalence of disease in our region, it is our hospital?s policy to screen for HIV and viral Hepatitis for all patients aged 18 and over and those with ongoing risk factors. Bert Inquiry Pt receiving controlled substance: No Bert was queried for this patient: No Vital Signs: 08/05/24 18:50 Temperature 98.8 F Temperature Source Oral Pulse Rate [Left Brachial] 97 H Respiratory Rate 22 Blood Pressure [Left Arm] 139/92 H Blood Pressure Mean [Left Arm] 107 Blood Pressure Source [Left Arm] Automatic Cuff Blood Pressure Position [Left Arm] Sitting 02 Sat by Pulse Oximetry 96 Oxygen Delivery Method Room Air Lab Data Lab results reviewed: Yes I reviewed the patient's lab results. Lab Results 08/05/24 18:49: Influenza Type A Ag Negative, Influenza Type B Ag Negative, Strep Scn Rapid Clinic Negative Orders (Tests/Meds): ORDERS Category Date Time Status Strep Screen Confirmation Stat Micro 08/05/24 18:49 Received
[2024-08-05 19:25] VITALS: BP 139/92; PULSE 97; RESP 22; TEMP 37.1; O2SAT 96
== END 2024-08-05 19:28 | disposition home or self-care (01) ==
PROVIDERS: Emergency Provider Nurse Practitioner; PCP Student in an Organized Health Care Education/Training Program
DX: J32.9 Chronic sinusitis, unspecified (principal); J40 Bronchitis, not specified as acute or chronic; R50.9 Fever, unspecified; H92.03 Otalgia, bilateral; R09.81 Nasal congestion; R51.9 Headache, unspecified; J02.9 Acute pharyngitis, unspecified
CPT/HCPCS: 87804; 87880; 99212; G0381

== ENCOUNTER 2024-11-08 10:23 | Emergency (ER) | payer BC, SELFPAY ==
[2024-11-08 10:24] VITALS: BP 138/85; PULSE 100; RESP 18; TEMP 36.8; O2SAT 100; BMI 38.6
--- NOTE | 2024-11-08 10:38 | XR_ITS ---
FINAL REPORT CLINICAL HISTORY: rolled ankle,foot COMPARISON: None FINDINGS: Three views of the right ankle show a faint linear density along the lateral talus on the ankle mortise view. This may represent a tiny chip or avulsion fracture. The medial and lateral malleoli are intact. There is no subluxation.. IMPRESSION: Questionable tiny chip/avulsion fracture arising from the lateral talus. Reviewed, Interpreted and Dictated by Trav Garcia MD Transcribed by Rosemarie Al Authenticated and . [facility]
--- NOTE | 2024-11-08 10:39 | XR_ITS ---
FINAL REPORT CLINICAL HISTORY: rolled ankle and foot COMPARISON: None FINDINGS: Three views of the right foot show no evidence of acute displaced fracture or dislocation of the visualized bony architecture. There is mild calcaneal spurring. The joint spaces appear normal. IMPRESSION: Unremarkable exam. Reviewed, Interpreted and Dictated by Trav Garcia MD Transcribed by Rosemarie Al Authenticated and [facility]
--- NOTE | 2024-11-08 10:40 | XR_ITS ---
FINAL REPORT CLINICAL HISTORY: INJURY rolled ankle COMPARISON: None FINDINGS: Two views of the right tibia/fibula were obtained. There is no acute fracture or dislocation. The joint spaces are intact. There is no soft tissue abnormality. IMPRESSION: No acute findings. Reviewed, Interpreted and Dictated by Trav Garcia MD Transcribed by Rosemarie Al Authenticated and [facility]
--- NOTE | 2024-11-08 11:57 | ED_ITS ---
Discharge Plan Disposition Patient Disposition: Home, Self-Care Prescriptions Prescriptions: No Action No Known Home Medications Referrals Follow up/Referrals: Mega Pickens DO [Staff Physician] - See instructions Adelina Pineda APRN [Primary Care Provider] - See instructions Activity Restrictions/Add. Instructions Additional Instructions/Restrictions: Do not bear weight on your right ankle. Keep in Aircast at all times other than showering and use crutches for ambulation. Follow-up with Dr. Pickens with orthopedic surgery. Clinical Impressions Clinical Impression: Avulsion fracture of talus Instructions Patient Instructions: Ankle Fracture Print Language Print Language: Faroese Discharge ED Provider: Elidia Elias General Adult HPI General Chief complaint: Extremity Injury, Lower Stated complaint: AO- 11/07-1700 hours- pain/swelling R ankle Time Seen by Provider: 11/08/24 11:57 Mode of Arrival: Ambulatory Source of Information: Patient Description of Symptoms (Recalled from ER Triage Doc. by RN): PT REPORTS RIGHT ANKLE INJURY, TWISTED WHILE WALKING . REPORTS UNABLE TO BEAR WEIGHT. PAIN ANS SWELLING, PULSES INTACT History of Present Illness HPI narrative: Patient is a 34-year-old with past medical history significant for history of f racture of the right ankle with ankle instability presents to the emergency department with right ankle pain. Patient was walking yesterday when he twisted his right ankle and has been unable to bear weight on it since. Patient also has increased pain and swelling. Related Data Home Medications ?Medication ?Instructions ?Recorded ?Confirmed No Known Home Medications 11/08/24 11/08/24 Allergies Allergy/AdvReac Type Severity Reaction Status Date / Time alcohol Allergy Anaphylaxis Verified 11/08/24 10:41 chloropyramine Allergy Other Verified 11/08/24 10:41 latex Allergy Blister Verified 11/08/24 10:41 [facility] Disclaimer: The information contained in this section may have been updated after the patient was seen, as this information can be updated by other users. Medical History GERD (gastroesophageal reflux disease) Cellulitis Strain of abdominal muscle Knee sprain Leg pain Surgical History History of ankle surgery Right ankle 2004- bolt placed for stability, 2005- hardware removal, 2017- anchors and mesh placed Hx of cholecystectomy Family History Other No significant family history Social History (Updated 11/08/24 @ 10:42 by Michelle Vega RN) Smoking Status: Never smoker alcohol intake: never substance use type: denies use current occupational status: employed Travel in the last 8 weeks: None Have you lived/traveled outside US in past 30 days?: No Contact w/someone who lives/traveled outside US past 30 days?: No Exposure to someone with infectious disease in past 14 days?: No Do you have a fever (greater than 100.4 F or 38 C)?: No Have you tested positive for COVID-19: No Exposed to someone with COVID-19 in past 14 days?: No Do you have a sore throat?: No Do you have a cough?: No Do you have any weakness?: No Do you have any diarrhea?: No Are you experiencing any unusual bleeding?: No Do you have any muscle aches/pain?: No Do you have any abdominal pain?: No Are you experiencing loss of taste or smell?: No Other Medical History Have you received the Flu Vaccine for this season: No ROS Obtained: Yes All systems reviewed & no additional complaints except as documented Physical Exam General General appearance: alert and in no apparent distress Respiratory Respiratory exam: Absent respiratory distress Cardiovascular Cardiovascular exam: Present regular rate and normal rhythm Abdominal Exam Abdominal exam: Absent distention or tenderness Extremities Exam Extremities exam: Present tenderness (Tenderness to the right lateral malleolus with associated swelling); Absent full ROM Neurological Exam Neurological exam: Present alert and oriented X3 Medical Decision Making Medical Records Screening: Per USPSTF and CDC recommendations, given the prevalence of disease in our region, it is our hospital?s policy to screen for HIV and viral Hepatitis for all patients aged 18 and over and those with ongoing risk factors. Bert Inquiry Pt receiving controlled substance: No Vital Signs: 11/08/24 10:24 Temperature 98.2 F Temperature Source Oral Pulse Rate [Radial] 100 H Respiratory Rate 18 Blood Pressure [Left Arm] 138/85 Blood Pressure Mean [Left Arm] 102 Blood Pressure Source [Left Arm] Automatic Cuff Blood Pressure Position [Left Arm] Sitting 02 Sat by Pulse Oximetry 100 Oxygen Delivery Method Room Air Orders (Tests/Meds): ORDERS Category Date Time Status Foot XR right minimum 3 views [XR foot RT min 3V] Stat Exams 11/08/24 10:39 Completed Tibia/fibula XR right 2 views [XR tibia fibula RT 2V] Exams 11/08/24 10:40 Completed Stat XR ankle RT min 3V Stat Exams 11/08/24 10:38 Completed HIV Combo Stat Lab 11/08/24 10:37 Ordered Hepatitis C Ab Qual. W/ RFX Stat Lab 11/08/24 10:37 Ordered Medical Decision Narrative: In summary, this 34-year-old male presents to the emergency department today with ankle pain after a fall. On initial evaluation patient is hemodynamically stable saturating appropriately on room air afebrile no acute distress. Differential diagnosis includes but is not limited to ligamentous or tendon injury, fracture. Based on these concerns, I ordered lower extremity radiographs XR personally interpreted demonstrates avulsion fracture of the talus Patient placed in compression bandage and Aircast. Was given crutches instructed to be nonweightbearing of his right ankle with outpatient follow-up with orthopedic surgery. On reassessment patient ambulatory with crutches amenable to discharge with outpatient follow-up with orthopedic surgery. Critical Care Critical Care Time Critical Care Time: No
[2024-11-08 13:15] VITALS: BP 132/80; PULSE 92; RESP 18; TEMP 36.8; O2SAT 100
== END 2024-11-08 13:15 | disposition home or self-care (01) ==
PROVIDERS: Emergency Provider Student in an Organized Health Care Education/Training Program; PCP Nurse Practitioner
DX: S92.101A Unspecified fracture of right talus, initial encounter for closed fracture (principal); W19.XXXA Unspecified fall, initial encounter
CPT/HCPCS: 73590; 73610; 73630; 99283

== ENCOUNTER 2024-11-14 14:41 | Outpatient (CLI) | payer BC, SELFPAY ==
--- NOTE | 2024-11-14 14:45 | XR_ITS ---
FINAL REPORT CLINICAL HISTORY: Rt Ankle pain sprained right ankle last (11/07) and today (11/14) he had extreme swelling that started COMPARISON: 11/08/2024 FINDINGS: RIGHT ANKLE 3 views of the right ankle were obtained. There is no acute fracture or dislocation. The previously questioned possible avulsion along the lateral talus is not seen on this exam. There is a small plantar spur. The mortise is intact. Visualized joint spaces are normally aligned. [id number] soft tissue edema about the ankle. IMPRESSION: Soft tissue edema without acute bony abnormality. Reviewed, Interpreted and Dictated by Oren Venegas MD Transcribed by Rosemarie Al Authenticated and . [facility]
== END 2024-11-14 23:59 | disposition home or self-care (01) ==
LOC: RAD 14:43
PROVIDERS: PCP Nurse Practitioner Family; Visit Provider Physician Assistant Surgical
DX: M25.571 Pain in right ankle and joints of right foot (principal)
CPT/HCPCS: 73610

== ENCOUNTER 2025-01-30 16:06 | Emergency (ER) | payer BC, SELFPAY ==
[2025-01-30] VITALS (8 sets, daily range): BP systolic 116–133; BP diastolic 69–84; PULSE 74–91; RESP 16–23; TEMP 36.7–36.9; O2SAT 95–99; BMI 40.8
--- NOTE | 2025-01-30 16:09 | ECG_ITS ---
APPROVED REPORT Exam: Resting ECG HR:86 bpm ECG Measurements Heart Rate 86 AXES DC 143 P 29 QRSd 110 QRS 81 QT 349 T 50 QTc 392 Conclusion SINUS RHYTHM NORMAL ECG Electronically signed by : VEGA CATES, 02/01/2025 12:41:20
--- NOTE | 2025-01-30 16:13 | XR_ITS ---
PROCEDURE INFORMATION: Exam: XR Chest Exam date and time: 01/30/2025 4:16 PM Age: 34 years old Clinical indication: Sternal or substernal pain; Additional info: Chest pain TECHNIQUE: Imaging protocol: Radiologic exam of the chest. Views: 2 views. COMPARISON: CR XR CHEST 2V 12/14/2023 4:25 PM FINDINGS: Lungs: Unremarkable. No consolidation. Pleural spaces: Unremarkable. No pleural effusion. No pneumothorax. Heart/Mediastinum: Unremarkable. No cardiomegaly. Bones/joints: Unremarkable. IMPRESSION: No acute findings.
--- NOTE | 2025-01-30 16:14 | ED_ITS ---
Discharge Plan Disposition Patient Disposition: Home, Self-Care Prescriptions Prescriptions: No Action No Known Home Medications Referrals Follow up/Referrals: Provider,Referral, MD [Primary Care Provider, Medical] - See instructions Activity Restrictions/Add. Instructions Additional Instructions/Restrictions: Follow-up with primary care doctor. Please return to the ED with any new, concerning, worsening symptoms. Clinical Impressions Clinical Impression: Chest pain Qualifiers: Chest pain type: unspecified Qualified Code(s): R07.9 - Chest pain, unspecified Print Language Print Language: Estonian Discharge ED Provider: Hermann Malik General Adult HPI General Chief complaint: Chest Pain Stated complaint: Chest Pain Time Seen by Provider: 01/30/25 16:17 Mode of Arrival: Ambulatory Source of Information: Patient Limitations: No Limitations History of Present Illness HPI narrative: This is a 34-year-old male with a past medical history of GERD who presents with chest pain. States that his pain began around 11 AM. Localized on the left side of his chest. States it is intermittent, associated with exertion. Not associated with inspiration. Denies any cardiac issues. Denies any other symptoms Related Data Home Medications ?Medication ?Instructions ?Recorded ?Confirmed No Known Home Medications 11/08/24 04/09/28 Allergies Allergy/AdvReac Type Severity Reaction Status Date / Time alcohol Allergy Anaphylaxis Verified 12/03/24 13:52 chloropyramine Allergy Other Verified 12/03/24 13:52 latex Allergy Blister Verified 12/03/24 13:52 [facility] Disclaimer: The information contained in this section may have been updated after the patient was seen, as this information can be updated by other users. Medical History GERD (gastroesophageal reflux disease) Cellulitis Strain of abdominal muscle Knee sprain Leg pain Surgical History History of ankle surgery Right ankle 2004- bolt placed for stability, 2005- hardware removal, 2018- anchors and mesh placed Hx of cholecystectomy Family History Other No significant family history Social History Smoking Status: Current every day smoker tobacco type: smokeless tobacco alcohol intake: never substance use type: denies use current occupational status: employed Travel in the last 8 weeks?: None Have you lived/traveled outside US in past 30 days?: No Contact w/someone who lives/traveled outside US past 30 days?: No Exposure to someone with infectious disease in past 14 days?: No Do you have a fever (greater than 100.4 F or 38 C)?: No Have you tested positive for COVID-19?: No Exposed to someone with COVID-19 in past 14 days?: No Do you have a sore throat?: No Do you have a cough?: No Do you have any weakness?: No Do you have any diarrhea?: No Are you experiencing any unusual bleeding?: No Do you have any muscle aches/pain?: No Do you have any abdominal pain?: No Are you experiencing loss of taste or smell?: No Other Medical History Have you received the Flu Vaccine for this season: No ROS Obtained: Yes All systems reviewed & no additional complaints except as documented Physical Exam General General appearance: alert and in no apparent distress Head Head exam: atraumatic Eye Eye exam: Present normal appearance, PERRL and EOMI Neck Neck exam: Present normal inspection and full ROM Chest Chest inspection: Present symmetric chest wall rise Respiratory Respiratory exam: Present normal lung sounds bilaterally; Absent respiratory distress Cardiovascular Cardiovascular exam: Present regular rate and normal rhythm Abdominal Exam Abdominal exam: Present soft; Absent distention Extremities Exam Extremities exam: Present normal inspection Neurological Exam Neurological exam: Present alert and oriented X3 Psychiatric Psychiatric exam: Present normal affect and normal mood Skin Skin exam: Present warm and dry Medical Decision Making Medical Records Medical records reviewed: Yes I reviewed the patient's medical records. Screening: Per USPSTF and CDC recommendations, given the prevalence of disease in our region, it is our hospital?s policy to screen for HIV and viral Hepatitis for all patients aged 18 and over and those with ongoing risk factors. Bert Inquiry Pt receiving controlled substance: No Vital Signs: 01/30/25 16:13 01/30/25 16:30 01/30/25 17:00 Temperature 98.4 F Temperature Source Oral Pulse Rate 91 H 88 Pulse Rate [Right Radial] 89 Respiratory Rate 16 22 19 Blood Pressure 133/82 129/77 Blood Pressure [Right Arm] 132/84 Blood Pressure Mean [Right Arm] 100 Blood Pressure Source Blood Pressure Source [Right Arm] Automatic Cuff Blood Pressure Position Blood Pressure Position [Right Arm] Supine 02 Sat by Pulse Oximetry 99 98 96 Oxygen Delivery Method Room Air Room Air Room Air 01/30/25 17:30 01/30/25 18:00 01/30/25 18:30 Temperature Temperature Source Pulse Rate 85 81 74 Pulse Rate [Right Radial] Respiratory Rate 23 22 19 Blood Pressure 126/77 122/78 116/69 Blood Pressure [Right Arm] Blood Pressure Mean [Right Arm] Blood Pressure Source Blood Pressure Source [Right Arm] Blood Pressure Position Blood Pressure Position [Right Arm] 02 Sat by Pulse Oximetry 97 97 95 Oxygen Delivery Method Room Air Room Air Room Air 01/30/25 19:00 01/30/25 20:02 Temperature 98.0 F Temperature Source Oral Pulse Rate 83 85 Pulse Rate [Right Radial] Respiratory Rate 22 17 Blood Pressure 124/73 129/77 Blood Pressure [Right Arm] Blood Pressure Mean [Right Arm] Blood Pressure Source Automatic Cuff Blood Pressure Source [Right Arm] Blood Pressure Position Sitting Blood Pressure Position [Right Arm] 02 Sat by Pulse Oximetry 97 Oxygen Delivery Method Room Air Room Air Lab Data Lab Results 01/30/25 16:14: WBC 9.8, RBC 5.31, Hgb 15.2, Hct 44.1, MCV 83.1, MCH 28.6, MCHC 34.5, RDW 12.1, Plt Count 356, MPV 9.8, Neut % (Auto) 60.2, Lymph % (Auto) 30.2, Glasscock % (Auto) 7.8, Eos % (Auto) 1.0, Baso % (Auto) 0.5, Neut # (Auto) 5.9, Lymph # (Auto) 3.0, Glasscock # (Auto) 0.8, Eos # (Auto) 0.1, Baso # (Auto) 0.1, Sodium 142, Potassium 4.1, Chloride 106, Carbon Dioxide 28, Anion Gap 12.1, BUN 19, Creatinine 0.90, Estimated Creat Clear 225, Estimated GFR 97, Est GFR ( Amer) 118, Glucose 91, Calcium 9.4, Total Bilirubin 1.4 H, AST 41, ALT 46, Alkaline Phosphatase 71, Troponin I < 0.01, Total Protein 7.8, Albumin 4.8, Globulin 3.0, Albumin/Globulin Ratio 1.6, HCV Ab DYLAN w/Rflx PCR Qn Negative, HIV Ag/Ab Combo Qual Negative 01/30/25 18:39: Troponin I < 0.01 01/30/25 16:14 01/30/25 16:14 Orders (Tests/Meds): ED MEDICATIONS Discontinued Medications Generic Name Dose Route Start Last Admin Trade Name Freq PRN Reason Stop Dose Admin Aspirin 325 mg 01/30/25 16:13 01/30/25 16:29 Aspirin 325mg Tablet PO 01/30/25 16:14 Not Given ONCE ONE ORDERS Category Date Time Status Chest XR 2 view (NOT portable) [XR chest 2V] Stat Exams 01/30/25 16:13 Completed CBC w/Auto Diff [Complete Blood Count Auto Diff] Stat Lab 01/30/25 16:14 Completed CMP [Comprehensive Metabolic Panel] Stat Lab 01/30/25 16:14 Completed HIV Combo Stat Lab 01/30/25 16:14 Completed Hepatitis C Ab Qual. W/ RFX Stat Lab 01/30/25 16:14 Completed Troponin I Q3H Lab 01/30/25 18:39 Completed Troponin I Stat Lab 01/30/25 16:14 Completed ECG Data Tracing #1: I reviewed this ECG and interpreted as documented below: Normal sinus rhythm at a rate of 86, QTc 392, normal axis, no STEMI Medical Decision Narrative: In summary, this 34-year-old male with a past medical history of GERD presents to the emergency department today with chest pain since 11 AM. On initial evaluation patient is afebrile, hemodynamic stable, nontoxic-appearing. Differential diagnosis includes but is not limited to ACS, pulmonary embolism, pneumonia, bronchitis, costochondritis, pleuritis. Based on these concerns, I ordered CBC, CMP, troponin, EKG, chest x-ray. Considered CT PE, however patient low risk for PE by Wells criteria and PERC negative. PE clinically ruled out. ECG personally interpreted as noted above. Patient received aspirin for treatment. Labs personally reviewed demonstrate undetectable troponin x 2, nonactionable CBC and CMP. XR personally interpreted demonstrates no acute cardiopulmonary pathology. HEART score 0. On reassessment patient in stable condition and in no acute distress. Appropriate for discharge at this time Critical Care Critical Care Time Critical Care Time: No
--- OUTSIDE RECORDS SUMMARY | 2025-01-30 16:21 | XMS_ITS | Data Portability ---
Author Organization [facility] [place] [facility] Address [address] [place] [id number] Assessment Encounter Date Assessment Date Assessment LastModified by Organization Details LastModified Time 2024 2024 Diagnosis Viral upper respiratory infection. Advised to drink plenty of fluids, run a cool-mist humidifier, gargle salt water for sore throat, and get plenty of rest. Patient should avoid over-exertion and reduce exposure to irritants such as smoke, cold, dry air, and dust. Treatment currently involves symptomatic relief. Patient may take acetaminophen or ibuprofen as directed to reduce fever and body aches. Antihistamine and decongestant usage was discussed and recommendations made. Patient understood these instructions and will follow up in the office in 10 days to 2 weeks if symptoms not improving. patient will retest in the am for covid at home, if positive will update work note if needed [email or web address] Not available 2024 09:43:33 Plan of Treatment Reminders Order Date Submit Date Provider Last Modified By Organization Details Last Modified Time Details Appointments None recorded. Lab rapid SARS CoV 2 Ag, QL IA, respiratory specimen 2023 024 [email or web address] 8 [facility], [address], [place], [address], Ph [phone] 09:44:01 Referral None recorded. Procedures None recorded. Surgeries None recorded. Imaging None recorded. Medication Orders None recorded. Patient TargetsNo targets recorded. Patient InstructionsNo instructions recorded. Reason for Referral None Reported. Results Created Date Observation Date Name Description Value Unit Range Abnormal Flag Note LastModifiedBy Organization Detail LastModifiedTime 04/16/2004/16/2024 rapid SARS CoV 2 Ag, QL IA, respi rator y speci men rapid SARS CoV 2 Ag, QL IA, respiratory specimen negati ve Not Available [facility] [address] [facility] [address], [place], [address], Ph [phone] 2024 09:24:55 Result Notes None recorded. Medical Equipment None Reported. Allergies Allergen ID Allergen Name Allergen Category Reaction Reaction Severity Criticality Documentation Date Start Date Code Code System Note Provider Name and Address Organization Details Recorded Time [id number] chlorphen iramine medicatio n Not available Not available Not available 2024 2400 RxNorm ROB Rowan [facility] & [place] 09:24:25 Medications Not known to be on any medication Vitals Date Recorded Body weight Body mass index (BMI) Body height Body temperature Heart rate Oxygen saturation Oxygen saturation in Arterial blood by Pulse oximetry Systolic blood pressure Diastolic blood pressure Provider Name and Address Organization Details Last Updated DateTime 4 267986. 6 g 39.1 kg/m2 182.88 cm 97.4 [degF] 91 /min 98 % 98 % 130 mm[Hg] 75 mm[Hg] Jasmyne RIVAS [facility] & [place] 09:21:26 Social History None recorded. Functional Status None recorded. Mental Status None recorded. Family History Nothing Reported. Medical History No medical history recorded. Past Encounters Encounter ID Performer Location Encounter Start Date Encounter Closed Date Diagnosis/Indication Diagnosis SNOMED-CT Code Diagnosis ICD10 Code Diagnosis Note [id number] Beth Sierra APRN [facility] [address] [facility] [address] [place] [address] 2024 09:09:57 2024 09:44:39 Headache 70758379 R51.9 Viral uppe r respiratory tract infection 814580167 J06.9 Health Concerns Section Related Observation LastModified by Organization Detai ls LastModified Time None Recorded Concern Status LastModified by Organization Details LastModified Time None Recorded Advance Directives Directive None Recorded Payers Insurance Date Sequence Insurance Name Policy Number Policy Rodriguez Covered Member ID Rodriguez Member ID Guarantor Name 2024 1 [employer] [employer]) [id number] Trampis T Cerrato [id number] 2024 1 [employer] ([employer]) [id number] Trampis T Cerrato [id number] Notes Date Note Type Note Provider Name and Address Organization Details Recorded Time 2024 text/html Upper Respirator y SymptomsReported bypatient.Location:he ad; chest; nasal; ears; face Quality:congested;dry cough;nasal discharge Severity:no pain Duration:cannot identify; symptoms began yesterday Onset/Timing:sudden Context:no foreign travel; non-smoker; exposed to covid Alleviating Factors:none Associated Symptoms:no chest pain; no sputum production; no shortness of breath; no wheezing; no cyanosis; no change in number of pillows needed to sleep at night; no sweats; no fever; no morning cough; no sore throat; no vomiting; no rash; no conjunctivitis;fatigu e;diarrhea;nausea;hea dache;chills;malaise Beth Sierra, [employer] [address], [place], [address], [facility] [place] & [place] 2024 09:43:56
[2025-01-30 16:27] LABS: Basophils # 0.1 K/mm3 (0-0.2); Basophils % 0.5 % (0.1-2.0); Eosinophils # 0.1 Kmm3 (0.0-0.4); Hematocrit 44.1 % (42.0-52.0); Hemoglobin 15.2 g/dL (14.1-18.0); Immature Granulocytes # 0.03 10^3uL; Immature Granulocytes % 0.3 %; Lymphocytes % 30.2 % (10-50); Mean Corpuscular HGB Conc 34.5 g/dL (31.8-35.4); Mean Corpuscular Hemoglobin 28.6 pg (27.0-31.2); Mean Corpuscular Volume 83.1 fl (80-94); Mean Platelet Volume 9.8 fl (7.4-10.4); Monocytes # 0.8 K/mm3 (0.1-1.0); Monocytes % 7.8 % (1.7-9.3); Neutrophils # 5.9 K/mm3 (1.8-7.8); Neutrophils % 60.2 % (37.0-80.0); Nucleated Red Blood Cells # 0 10^3/uL; Nucleated Red Blood Cells % 0 %; Platelet Count 356 K/mm3 (142-424); Red Blood Count 5.31 M/mm3 (4.60-6.20); Red Cell Distribution Width 12.1 % (11.5-17.5); Red Cell Distribution Width-SD 36.8 fL; White Blood Count 9.8 K/mm3 (4.8-10.8)
[2025-01-30 16:34] LABS: Albumin Level 4.8 g/dl (3.5-5.0); Chloride 106 mmol/L (98-107); Potassium 4.1 mmoL/L (3.5-5.1); Sodium 142 mmol/L (136-145)
[2025-01-30 16:36] LABS: Blood Urea Nitrogen 19 mg/dl (9-20); Creatinine Clearance Estimated 225 mL/min (50-200); Estimated Glomerular Filt Rate 97 ml/min (>60); GFR (African American) 118 ML/MIN (>60)
[2025-01-30 16:37] LABS: Alanine Aminotransferase 46 U/L (12-78); Albumin/Globulin Ratio 1.6 (1.1-1.8); Alkaline Phosphatase 71 U/L (38-126); Anion Gap 12.1 mEq/L (5-15); Aspartate Amino Transferase 41 U/L (17-59); Bilirubin,Total 1.4 mg/dl (0.2-1.3); Calcium 9.4 mg/dl (8.4-10.2); Carbon Dioxide 28 mmol/L (22.0-30.0); Glucose 91 mg/dl (74-100); Total Protein,Serum 7.8 g/dl (6.3-8.2)
[2025-01-30 17:05] LABS: Troponin I < 0.01 ng/ml (0.00-0.034)
[2025-01-30 18:30] LABS: HIV Combo NEGATIVE (Negative)
[2025-01-30 18:38] LABS: Hepatitis C Ab Qual. W/ RFX NEGATIVE (Negative)
[2025-01-30 19:49] LABS: Troponin I < 0.01 ng/ml (0.00-0.034)
== END 2025-01-30 20:07 | disposition home or self-care (01) ==
PROVIDERS: Emergency Provider Student in an Organized Health Care Education/Training Program
DX: R07.9 Chest pain, unspecified (principal); K21.9 Gastro-esophageal reflux disease without esophagitis; F17.210 Nicotine dependence, cigarettes, uncomplicated
CPT/HCPCS: 71046; 80053; 84484; 85025; 86803; 87389; 93005; 99285

== ENCOUNTER 2025-05-27 09:21 | Outpatient (CLI) | payer BC, SELFPAY ==
--- OUTSIDE RECORDS SUMMARY | 2025-05-27 09:29 | XMS_ITS | Clinical Summary ---
Author Organization [facility] Address [address] [place], [place] [id number] Phone [email or web address] Care Team Providers Care Stacker Straightener Name Role Phone Mil Munson Primary Care Provider Unavailabl e Allergies Active Allergy Reactions Criticality Noted Date Comments Alcohol Swelling 08/08/2018 Diphenhydramine 08/08/2018 Chlorphentermine 04/17/2019 Latex Hives 08/08/2018 Medications No known medications Active Problems No known active problems Social History Tobacco Use Types Packs/Day Years Used Date Smoking Tobacco: Never Assessed Intimate Partner Violence Answer Date R ecorded Insults You Not on file 12/17/2020 Threatens You Not on file 12/17/2020 Screams at You Not on file 12/17/2020 Physically Hurt Not on file 12/17/2020 Intimate Partner Violence Score Not on file 12/17/2020 Stress Answer Date Recorded Stress in your Life Not on file 07/09/2024 Dealing with Stress 3 07/09/2024 Sex and Gender Information Value Date Recorded Sex Assigned at Not on file Legal Sex Male 3:53 PM [employer] Gender Identity Not on file Sexual Orientation Not on file Last Filed Vital Signs Vital Sign Reading Time Taken Comments Blood Pressure 115/75 04/19/2019 5:54 PM EDT Pulse 97 04/19/2019 5:54 PM EDT Temperature 37.8 C (100 F) 04/19/2019 5:54 PM EDT Respiratory Rate 14 04/19/2019 5:54 PM EDT Oxygen Saturation 99% 04/19/2019 5:54 PM EDT Inhaled Oxygen Concentration - - Weight 123 kg (271 lb 6.4 oz) 08/08/2018 8:19 AM EST Height 182.9 cm (6') 08/08/2018 8:19 AM EST Body Mass Index 36.81 08/08/2018 8:19 AM EST Plan of Treatment Health Maintenance Due Date Last Done Comments Dental Cleaning/Exam 1991 HIV Screening 1991 Hepatitis C Screening 1991 HPV Immunization (1 - Male 3 -dose series) 2006 Hep B Infection Screening - Triple Screen 2009 Hepatitis B Immunization (1 of 3 - 19+ 3-dose series) 2010 Tetanus Diphtheria and Pertu ssis Immunization (1 - Tdap) 2010 Annual Preventive Exam 08/08/2019 08/08/2018 Covid-19 Immunization (1 - 2 25 season) 2025 Influenza Immunization (#1) 2025 HIB Immunization Aged Out No longer e ligible based on patient's age to complete this topic Hepatitis A Immunization Aged Out No longer eligible based on patient's age to complete this topic Pneumococcal Immunization Aged Out No longer eligible based on patient's age to complete this topic Polio Immunization Aged Out No longer eligible based on patient's age to complete this topic Varicella Immunization Aged Out No lo nger eligible based on patient's age to complete this topic Insurance OPT OUT NO COPAY NB Care Teams Stacker Straightener Relationship Specialty Start Date End Date Mil Munson: [phone] PCP - General 04/19/19
--- OUTSIDE RECORDS SUMMARY | 2025-05-27 09:29 | XMS_ITS | Clinical Summary ---
Author Organization [facility] Address [address] [place] [address] Care Team Providers Care Certified Health Education Specialist Name Role Phone Eric Asif MD Primary Care Provider [phone] Allergies Active Allergy Reactions Criticality Noted Date Comments Elemental Sulfur Unknown - High Severity 2019 Chlorphentermine Other (See Comments) 9 Hyperactivity Latex Unknown - Low Severity 11/13/2019 Medications No known medications Active Problems Problem Noted Date Diagnosed Date History of esophagitis 08/08/2022 Overview (08/08/2022): Endoscopy proven. Avoid prolonged NSAIDs Family History Medical History Relation Name Comments Hyperlipidemia Father Relation Name Status Comments Father Social History Tobacco Use Types Packs/Day Years Used Date Smoking Tobacco: Former Smokeless Tobacco: Current Chew Tobacco Cessation:Ready to Q uit: Not Asked; Counseling Given: Not Answered Alcohol Use Standard Drinks/Week Comments Never 0 (1 standard drink = 0.6 oz pur e alcohol) AUDIT-C Answer Date Recorded Frequency of Alcohol Consumption Never 11/13/2019 Average Number of Drinks Not on file 020 Frequency of Binge Drinking Not on file 11/02 PHQ-2 Answer Date Recorded Retired PHQ-9: Brief Depression Severity Measure Score 0 08/08/2022 Abuse Screen Answer Date Recorded Unsafe at Home or Work/School Not on file Feels Threatened by Someone? Not on file 06/2023 Does Anyone Keep You from Co ntacting Others or Doint Things Outside the Home? Not on file 06/13/2023 Physical Sign of Abuse Present Not on file 1 Housing Stability Answer Date Recorded Current Living Arrangements Not on file 06/04 Potentially Unsafe Housing Conditions Not on darryl e 06/13/2023 Family and Community Support Answer Shravan e Recorded Help with Day-to-Day Activities Not on file 06/13/2023 Lonely or Isolated Not on file 06/13/2023 Employment Answer Date Recorded Do you want help finding or keeping work or a elizabeth b? Not on file 06/13/2023 Disabilities Answer Date Recorded Concentrating, Remembering, or Making Decisions Difficulty Not on file 06/13/2023 Doing Errands Independently Difficulty Not on fi le 06/13/2023 Education Answer Date Recorded Help with school or training? Not on file Preferred Language Not on file 06/13/2023 Sex and Gender Information Value Date Recorded Sex Assigned at Not on file Legal Sex Male 12:05 PM EDT Gender Identity Not on file Sexual Orientation Not on file Last Filed Vital Signs Vital Sign Reading Time Taken Comments Blood Pressure 104/68 08/08/2022 7:41 AM EST Pulse 94 08/08/2022 7:41 AM EST Temperature 37 C (98.6 F) 08/08/2022 7:41 AM EST Respiratory Rate 26 08/08/2022 7:41 AM EST Oxygen Saturation 97% 08/08/2022 7:41 AM EST Inhaled Oxygen Concentration - - Weight 128 kg (283 lb) 08/08/2022 7:41 AM EST Height 182.9 cm (6') 08/08/2022 7:41 AM EST Body Mass Index 38.38 08/08/2022 7:41 AM EST Plan of Treatment Health Maintenance Due Date Last Done Comments TDAP/TD VACCINES (2 - Tdap) 2013 2003 ANNUAL PHYSICAL 08/19/2019 HEPATITIS C SCREENING 08/19/2019 INFLUENZA VACCINE 04/04/2025 Pneumococcal Vaccine 0-49 Aged Out No longer eligible based on patient's age to complete this topic Insurance [facility] P[facility] Care Teams Certified Health Education Specialist Relationship Specialty Start Date End Date Eric Asif MD [address] [place] [address] PCP - General Family Medicine 08/08/22
[2025-05-27 10:53] LABS: C-Reactive Protein 4.0 mg/L (0-4)
[2025-05-27 11:25] LABS: Adenovirus F 40/41, stool Not Detected (NotDetected); Clostridium Difficile A/B, PCR Not Detected (NotDetected); Cyclospora Cayetanesis Not Detected (NotDetected); Plesimonas Shigalloides, PCR Not Detected (NotDetected); Salmonella, PCR Not Detected (NotDetected); Shiga-like toxin E coli Not Detected (NotDetected); Shigella Enterovasive E coli Not Detected (NotDetected); Vibrio, PCR Not Detected (NotDetected); Yersinia Entercolitica, PCR Not Detected (NotDetected)
[2025-05-27 11:38] LABS: Vitamin B12 559 pg/mL (239-931)
[2025-05-28 16:49] LABS: Deamidated Gliadin Abs, IgA 3 units (0-19); Deamidated Gliadin Abs, IgG 2 units (0-19)
[2025-05-29 08:13] LABS: Calprotectin, Fecal 10 ug/g (0-120); Pancreatic Elastase, Fecal >800 (>200)
[2025-05-30 14:12] LABS: Saccharomyces cerevisiae, IgA 27.9 Units (0.0-24.9); Saccharomyces cerevisiae, IgG <20.0 Units (0.0-24.9)
[2025-05-31 19:26] LABS: 1,25 Dihydroxy Vitamin D 61 pg/mL (.); 1,25-Dihydroxy, Vitamin D-2 <10 pg/mL (.); 1,25-Dihydroxy, Vitamin D-3 61 pg/mL (.)
== END 2025-05-27 23:59 | disposition home or self-care (01) ==
LOC: LAB 09:23
PROVIDERS: PCP Internal Medicine; Visit Provider Internal Medicine Gastroenterology
DX: R14.0 Abdominal distension (gaseous) (principal); R19.7 Diarrhea, unspecified
CPT/HCPCS: 36415; 82607; 82652; 82653; 83993; 86140; 86231; 86256; 86258; 86364; 86671; 87506

== ENCOUNTER 2025-07-24 06:08 | Day surgery (SDC) | payer BC, SELFPAY ==
[2025-07-16 14:53] VITALS: BMI 40.6
--- NOTE | 2025-07-18 12:57 | EXP.HP ---
History of Present Illness *Admission Date: 07/24/25 *History of present illness: Mr. Cerrato is a 35-year-old gentleman who is here for diagnostic EGD and colonoscopy. The patient has had diarrhea and abdominal pain. The patient does state that he has had worsening diarrhea over the last month but has had some longstanding digestive issues. The patient was seen by OTTO Fernandez in July 2023 with loose stools and abdominal pain. The patient did have panendoscopy 7 years ago. The patient presently reports diarrhea and will go 4-5 times daily. On bad days he may be in the bathroom for up to 6 hours. He has extreme bloating with cramps and some foul-smelling belching. He has had some intermittent nausea and vomiting with the bloating. He reports early satiety and lower abdominal pain. He reports no weight loss. He reports no rectal bleeding or melena. He has noted mucus with most of his bowel movements. The patient does have frequency, urgency and incomplete defecation with excessive wiping. He can sit on the commode for a while before having a bowel movement. He does state that his father, grandmother and great-grandmother had colitis. The patient did previously have labs that showed normal CBC without anemia. His blood work in May 2023 did show a slightly elevated CRP at 5.3 but his sed rate was normal. His CAT scan 3 years ago did show a fatty liver. He did have normal liver and pancreatic chemistries previously. He has been on dicyclomine. The patient had normal stool studies including normal calprotectin (10 mcg/g), normal fecal elastase (greater than 800 mcg/g) and normal PCR microbial panel. The examination is deemed medically necessary for diagnostic EGD and colonoscopy. The patient has been seen, interviewed and examined prior to the procedure by both myself and the anesthesia provider. [facility] Disclaimer: The information contained in this section may have been updated after the patient was seen, as this information can be updated by other users. Medical History Hypertension GERD (gastroesophageal reflux disease) Cellulitis Strain of abdominal muscle Knee sprain Leg pain Surgical History History of ankle surgery Right ankle 2004- bolt placed for stability, 2006- hardware removal, 2018- anchors and mesh placed Hx of cholecystectomy Family History Other Family history of CVA Family history of diabetes mellitus Family history of heart disease Social History Smoking Status: Current every day smoker tobacco type: smokeless tobacco alcohol intake: never substance use type: denies use current occupational status: employed Travel in the last 8 weeks?: Inside the [place] Have you lived/traveled outside US in past 30 days?: No Contact w/someone who lives/traveled outside US past 30 days?: No Exposure to someone with infectious disease in past 14 days?: No Do you have a fever (greater than 100.4 F or 38 C)?: No Have you tested positive for COVID-19?: Yes Exposed to someone with COVID-19 in past 14 days?: No Do you have a sore throat?: No Do you have a cough?: No Do you have any weakness?: No Are you experiencing any nausea/vomitting?: No Do you have any diarrhea?: No Are you experiencing any unusual bleeding?: No Do you have any muscle aches/pain?: No Do you have any abdominal pain?: No Are you experiencing loss of taste or smell?: No Other Medical History Have you received the Flu Vaccine for this season: No Have you received the Pneumonia Vaccine: No Review of Systems Review of Systems Review of systems (narrative): Negative *Cardiovascular Comments: Negative *Gastrointestinal Comments: Negative *Genitourinary Comments: Negative *Musculoskeletal Comments: Negative *Neurologic Comments: Negative Meds Home Medications and Allergies Home Medications ?Medication ?Instructions ?Recorded ?Confirmed ?Type metoprolol succinate 50 mg 50 mg PO DAILY #90 tabs 05/01/25 07/24/25 Rx tablet,extended release 24 hr buspirone 10 mg tablet 10 mg PO BID #60 tabs 05/27/25 07/24/25 Rx sodium,potassium,mag sulfates 17.5 See Rx Instructions PO .COMPLEX 07/11/25 07/24/25 Rx gram-3.13 gram-1.6 gram oral soln #354 mL (Suprep Bowel Prep Kit) New Prescriptions to Start Prescriptions: Allergies Allergy/AdvReac Type Severity Reaction Status Date / Time alcohol Allergy Anaphylaxis Verified 07/24/25 07:00 chloropyramine Allergy Other Verified 07/24/25 07:00 latex Allergy Blister Verified 07/24/25 07:00 Exam Data for Last 24 hours I & O for Last 24 hours: Intake & Output 07/15/25 07/16/25 07/17/25 07/18/25 23:59 23:59 23:59 23:59 Weight 300 lb *Routine HEENT Exam Head: Present normocephalic Eye: Present EOMI and PERRL ENT: Present mucous membranes moist *Routine Neck Exam Neck: Present supple *Routine Respiratory Exam Respiratory: Present CTA bilaterally *Routine Cardiovascular Exam Cardiovascular: Present RRR *Routine Abdominal Exam Abdominal: Present soft and normoactive bowel sounds; Absent tenderness *Routine Rectal Exam Rectal:: deferred *Routine Genitalia Exam Genitalia:: deferred *Routine Extremities Exam Extremities: Absent cyanosis, clubbing or edema *Routine Skin Exam Skin: Present warm; Absent rash *Routine Neurological Exam Neurological: Present alert and oriented X3 Assessment and Plan *Assessment and plan (1) Bloating: Status: Acute Category: Medical Code(s): R14.0 - Abdominal distension (gaseous) (2) Lower abdominal pain: Status: Acute Category: Medical Code(s): R10.30 - Lower abdominal pain, unspecified (3) Early satiety: Status: Acute Category: Medical Code(s): R68.81 - Early satiety (4) Belching: Status: Acute Category: Medical Code(s): R14.2 - Eructation (5) Diarrhea: Status: Acute Category: Medical Code(s): R19.7 - Diarrhea, unspecified (6) Nausea vomiting and diarrhea: Status: Acute Category: Medical Code(s): R11.2 - Nausea with vomiting, unspecified; R19.7 - Diarrhea, unspecified (7) Family history of colitis: Status: Acute Category: Medical Code(s): Z83.79 - Family history of other diseases of the digestive system Plan A/P: 1. Lower abdominal pain, bloating, fullness, early satiety, belching, nausea and diarrhea with family history of colitis is the preprocedural diagnosis. The patient will be anesthetized/sedated using MAC sedation. The patient has been seen and examined. Cardiac and lung assessment prior to the examination is stable. Proceed with planned diagnostic EGD and colonoscopy.
--- NOTE | 2025-07-24 06:52 | HMH.PROCNOTE ---
[facility] Procedure Note Date: 07/24/25 Time: 07:48 Procedure Note:: Upper Endoscopy Procedure Report: Esophagogastroduodenoscopy with cold biopsies Endoscopost: Lamonte Gonzalez II, MD Referring Physician: Shamir Antonio DO Date of Procedure: July 24, 2025 Equipment: Olympus [id number]-1100 standard upper endoscope Sedation: MAC sedation Indications: Mr. Cerrato is a 35-year-old gentleman who is here for diagnostic EGD and colonoscopy. The patient has had diarrhea and generalized abdominal pain. This has progressively become more frequent and more severe over the last 7 years. The patient does state that he has had worsening diarrhea over the last month but has had some longstanding digestive issues. The patient was seen by OTTO Fernandez in July 2023 with loose stools and abdominal pain. He does report a lot of heartburn but no dysphagia. The patient did have panendoscopy 7 years ago. The patient presently reports diarrhea and will go 4-5 times daily. On bad days he may be in the bathroom for up to 6 hours. He has extreme bloating, gassiness with cramps and some occasional foul-smelling belching. He has had some intermittent nausea and vomiting (usually vomiting is once monthly) with the bloating. He reports early satiety and lower abdominal pain. He reports no weight loss and actually has gained weight. He reports no rectal bleeding or melena. He has noted a lot of mucus with most of his bowel movements. The patient does have frequency, urgency and incomplete defecation with excessive wiping. He can sit on the commode for a while before having a bowel movement. He does state that his father, grandmother and great-grandmother had colitis. The patient did previously have labs that showed normal CBC without anemia. His blood work in May 2023 did show a slightly elevated CRP at 5.3 but his sed rate was normal. His CAT scan 3 years ago did show a fatty liver. He did have normal liver and pancreatic chemistries previously. He has been on dicyclomine. The patient had normal stool studies including normal calprotectin (10 mcg/g), normal fecal elastase (greater than 800 mcg/g) and normal PCR microbial panel. The examination is deemed medically necessary for diagnostic EGD and colonoscopy. Procedure: Prior to the procedure, a history and physical exam was performed, and patient's medications and allergies were reviewed. The risks, benefits and alternatives of the sedation and procedure were discussed with the patient. All questions were answered and informed consent was obtained. The patient was brought to the procedure room. Patient identification and proposed procedure were verified by the physician and the nurse. The patient was placed in a left lateral decubitus position and the scope was passed under direct vision. Throughout the procedure, the patient's blood pressure, pulse, and oxygen saturations were monitored continuously. The upper GI endoscopy was accomplished without difficulty. The patient tolerated the procedure well. Findings: The scope was passed directly into the upper esophagus and advanced to the third portion of the duodenum. The post bulbar duodenum, ampulla and duodenal bulb were normal with normal mucosa and conniventes. Cold biopsies were taken from the second portion of the duodenum x 2 for the disaccharidase assay. 2 cold biopsies were taken from the duodenal bulb to rule out celiac disease. The scope was withdrawn through a normal duodenal bulb and pylorus into the stomach. There was bile reflux with mild to moderate linear reactive gastropathy of the antrum and body of the stomach. Cold biopsies were taken from the antrum. Upon retroflexion, the fundus of the stomach was normal and there was no hiatal hernia. The scope was then withdrawn into the esophagus. There was no evidence of reflux esophagitis but there was a serrated Z-line and a single tongue of salmon-colored mucosa that was biopsied to rule out intestinal metaplasia. There were tertiary contractions and evidence of mild esophageal dysmotility. The remainder of the esophageal mucosa was normal. Impression: 1. Nonerosive GERD with mild esophageal dysmotility 2. Bile reflux with mild to moderate linear reactive gastropathy Plan: I will follow-up the biopsies and disaccharidase assay. The patient does have dyspepsia and IBS?D. We will discuss treatment options today. I will proceed with diagnostic colonoscopy.
--- NOTE | 2025-07-24 06:52 | HMH.PROCNOTE ---
[facility] Procedure Note Date: 07/24/25 Time: 08:00 Procedure Note:: Colonoscopy Procedure Report: Colonoscopy with cold biopsies Endoscopist: Lamonte Gonzalez II, MD Referring physician: Shamir Antonio DO Date of Procedure: July 24, 2025 Equipment: Olympus [id number] adult colonoscope Sedation: MAC sedation Indication: Mr. Cerrato is a 35-year-old gentleman who is here for diagnostic EGD and colonoscopy. The patient has had diarrhea and generalized abdominal pain. This has progressively become more frequent and more severe over the last 7 years. The patient does state that he has had worsening diarrhea over the last month but has had some longstanding digestive issues. The patient was seen by OTTO Fernandez in July 2023 with loose stools and abdominal pain. He does report a lot of heartburn but no dysphagia. The patient did have panendoscopy 7 years ago. The patient presently reports diarrhea and will go 4-5 times daily. On bad days he may be in the bathroom for up to 6 hours. He has extreme bloating, gassiness with cramps and some occasional foul-smelling belching. He has had some intermittent nausea and vomiting (usually vomiting is once monthly) with the bloating. He reports early satiety and lower abdominal pain. He reports no weight loss and actually has gained weight. He reports no rectal bleeding or melena. He has noted a lot of mucus with most of his bowel movements. The patient does have frequency, urgency and incomplete defecation with excessive wiping. He can sit on the commode for a while before having a bowel movement. He does state that his father, grandmother and great-grandmother had colitis. The patient did previously have labs that showed normal CBC without anemia. His blood work in May 2023 did show a slightly elevated CRP at 5.3 but his sed rate was normal. His CAT scan 3 years ago did show a fatty liver. He did have normal liver and pancreatic chemistries previously. He has been on dicyclomine. The patient had normal stool studies including normal calprotectin (10 mcg/g), normal fecal elastase (greater than 800 mcg/g) and normal PCR microbial panel. The examination is deemed medically necessary for diagnostic EGD and colonoscopy. Procedure: Prior to the procedure, a history and physical exam was performed, and patient's medications and allergies were reviewed. The risks, benefits and alternatives of the sedation and procedure were discussed with the patient. All questions were answered and informed consent was obtained. The patient was brought to the procedure room. Patient identification and proposed procedure were verified by the physician and the nurse. The patient was placed in a left lateral decubitus position and the scope was passed under direct vision. Throughout the procedure, the patient's blood pressure, pulse, and oxygen saturations were monitored continuously. The colonoscopy was accomplished without difficulty. The patient tolerated the procedure well. Findings: On digital rectal examination there was normal rectal tone. There were no external hemorrhoids. The colonoscope was introduced through the anal canal to the rectum and advanced to the cecum. The ileocecal valve and appendiceal orifice were identified. The scope was advanced a short distance into the ileum which appeared grossly normal. The scope was then withdrawn into the colon. The cecum, ascending, transverse, descending, sigmoid and rectum were grossly normal. Random cold biopsies were taken from the right colon to rule out microscopic colitis. There were no mucosal abnormalities identified. Upon retroflexion within the rectum there were grade 1-2 internal hemorrhoids. The preparation was fair throughout with Larose Preparation Score of 7 out of 9. The cecal time was 12 minutes. Impression: 1. Normal colonoscopy with intubation of the terminal ileum 2. Grade 1-2 internal hemorrhoids Plan: I will follow-up the biopsies to rule out microscopic colitis. If the biopsies are normal, I would recommend further treatment for IBS?D and would initiate Viberzi plus FiberCon. I would also recommend that we initiate additional treatment for his visceral sensitivity with neuromodulation (tricyclic therapy (nortriptyline)). We will discuss treatment options.
[2025-07-24 07:02] VITALS: BP 138/91; PULSE 68; RESP 18; TEMP 36.3; O2SAT 98; BMI 40.6
[2025-07-24] MEDS: LACTATED RINGERS 1000ML 1,000 ML 50 ML IV (07:12)
--- NOTE | 2025-07-24 07:16 | EXP.ANES.CKL ---
[facility] Disclaimer: The information contained in this section may have been updated after the patient was seen, as this information can be updated by other users. Medical History Hypertension GERD (gastroesophageal reflux disease) Cellulitis Strain of abdominal muscle Knee sprain Leg pain Surgical History History of ankle surgery Right ankle 2004- bolt placed for stability, 2005- hardware removal, 2018- anchors and mesh placed Hx of cholecystectomy Family History Other Family history of CVA Family history of diabetes mellitus Family history of heart disease Social History Smoking Status: Current every day smoker tobacco type: smokeless tobacco alcohol intake: never substance use type: denies use current occupational status: employed Travel in the last 8 weeks?: Inside the [place] Have you lived/traveled outside [place] in past 30 days?: No Contact w/someone who lives/traveled outside [place] past 30 days?: No Exposure to someone with infectious disease in past 14 days?: No Do you have a fever (greater than 100.4 F or 38 C)?: No Have you tested positive for COVID-19?: Yes Exposed to someone with COVID-19 in past 14 days?: No Do you have a sore throat?: No Do you have a cough?: No Do you have any weakness?: No Are you experiencing any nausea/vomitting?: No Do you have any diarrhea?: No Are you experiencing any unusual bleeding?: No Do you have any muscle aches/pain?: No Do you have any abdominal pain?: No Are you experiencing loss of taste or smell?: No [facility] Anesthesia Checklist Patient Identification Patient Identification: Arm Band and Verbal (Name & ) Structural Data Admitted From: Home Planned Operative Procedure/s: EGD+Colonoscopy Consent for Planned Operative Procedure(s) Verified: Yes Verified Documents: Surgical Consent NPO Status Verified Time NPO: 00:00 Chart Verification Results Verified: None Additional verifications Anesthesia Reactions: No Airway Assessment Mallampati Score:: Class II C-Spine Mobility Assessed: Yes TMJ Mobility Assessed: Yes Dentition: Good Dentition Neurological Assessment Level of Consciousness: Awake, Alert and Appropriate Hx Seizures: No Numbness or tingling in extremities: No Anesthesia Plan Anesthesia Risk discussed: Yes Anesthesia Plan: Verified ASA Class: II Anesthesia Type: MAC
[2025-07-24 08:04] VITALS: BP 117/71; PULSE 92; RESP 18; TEMP 36.1; O2SAT 97
[2025-07-24 08:14] VITALS: BP 123/71; PULSE 79; RESP 18; TEMP 36.1; O2SAT 97
[2025-07-24 08:24] VITALS: BP 133/78; PULSE 71; RESP 16; TEMP 36.1; O2SAT 97
[2025-07-24 08:34] VITALS: BP 133/78; PULSE 71; RESP 16; TEMP 36.1; O2SAT 97
[2025-07-29 14:23] LABS: Interpretation Notes (.); Lactase 13.99 (>/= 14.0); Maltase 256.32 (>/= 110.0); Palatinase 18.04 (>/= 8.5); Reference Notes (.); Sucrase 72.17 (>/= 25.0)
== END 2025-07-24 08:34 | disposition home or self-care (01) ==
PROVIDERS: PCP Internal Medicine; Visit Provider Internal Medicine Gastroenterology
PROC: 0DJ08ZZ Inspection of Upper Intestinal Tract, Via Natural or Artificial Opening Endoscopic (ICD-10-PCS; CPT 45378; principal; 2025-07-24 07:30)
DX: K29.80 Duodenitis without bleeding (principal); K29.50 Unspecified chronic gastritis without bleeding; K21.9 Gastro-esophageal reflux disease without esophagitis; K22.4 Dyskinesia of esophagus; K31.89 Other diseases of stomach and duodenum; I51.89 Other ill-defined heart diseases; R19.7 Diarrhea, unspecified; K64.1 Second degree hemorrhoids; R15.0 Incomplete defecation; F17.290 Nicotine dependence, other tobacco product, uncomplicated; Z83.79 Family history of other diseases of the digestive system; Z87.19 Personal history of other diseases of the digestive system; Z79.899 Other long term (current) drug therapy
CPT/HCPCS: 43239; 45380; 82657; J2003; J2704; J7120